=== PATIENT | female | born 1995 | race Caucasian/White ===

== ENCOUNTER 2017-06-08 07:39 | Emergency (ER) | payer MEDICAID, SELFPAY ==
[2017-06-08 07:40] VITALS: BP 103/75; PULSE 90; RESP 18; TEMP 36.4; O2SAT 97; BMI 28.5
[2017-06-08 07:55] VITALS: BP 103/70; PULSE 87; RESP 19; O2SAT 98
--- NOTE | 2017-06-08 08:01 | RAD_ITS ---
STUDY: X-RAY CHEST REASON FOR EXAM: Female, 21 years old. Chest pain TECHNIQUE: PA and lateral views of the chest. COMPARISON: None. FINDINGS: EKG leads overlie the chest The lungs are clear and expanded. There is no demonstrated pleural abnormality. Normal size heart. Normal mediastinum and eboni. Normal visualized pulmonary arteries. Normal visualized aortic arch and descending thoracic aorta. Normal visualized thoracic spine. Normal visualized ribs, clavicles, and shoulders. There is no demonstrated abnormality of the visualized soft tissue structures of the upper abdomen. RAD/Chest PA and Lateral IMPRESSION: Normal x-ray examination of the chest. Electronically Signed: Tremaine Cedeno MD at 8:37 EST , Service support ,
--- NOTE | 2017-06-08 08:14 | ED.VISSUMM ---
- ER Visit Summary Date of Service: 06/08/17 Chief Complaint: Sent to emergency room by work History of Present Illness: The patient is a 21 F who states that she is here for a chest pain. She states that today she went to work was told to go see a doctor in the emergency room. 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 She states that she has had a cough for several days. She notes nausea vomiting diarrhea. She notes a headache. She notes now she has a dull ache in the center of her chest that become sharp when she pushes on it. She has a history of anxiety depression. She takes no medications. She is a smoker. No reported fevers. She states I am here for that work note thing. Physical Examination: Afebrile vital signs are stable Gen: Well-nourished well-developed Head: Normocephalic atraumatic Eyes: Perrl EOMI ENT: TMs clear rhinorrhea clear moist mucous membranes Neck: Supple no lymphadenopathy no JVD nontender CVS: Regular rate rhythm no murmurs normal S1-S2 Respiratory: No distress clear to auscultation bilaterally chest tender palpation in the midline along the costochondral junction. Abdomen: Soft nontender nondistended normal bowel sounds no masses Back: Nontender Extremity: Nontender no edema Skin: Normal color no rash Neuro: alert orientated ?3 CN II-XII intact normal strength sensation reflexes gait cerebellar Psych: Normal affect normal mood Test Results: Chest x-ray was obtained. Emergency Department Course and Treatment: [] Impression: [] This note was generated with [employer] dictation software. It may contain incorrect words, spelling, and punctuation that were not noted in review of the chart prior to signing ED Disposition - Plan for ED Patient: Disposition: Home or Assisted Living Chief Complaint: General Illness Instructions: ED Upper Resp Infec No Abx Tx Prescriptions: Albuterol Inhaler [Ventolin Hfa] 2 puff INHALATION Q4H PRN PRN #1 inhaler PRN Reason: Wheezing Benzonatate [Tessalon Perle] 200 mg PO TID PRN PRN #20 capsule PRN Reason: Cough Referrals: Rajiv Kohler [Primary Care Provider] - 1 Week if not improving
[2017-06-08 09:04] VITALS: BP 104/69; PULSE 89; RESP 16; O2SAT 99
== END 2017-06-08 09:05 | disposition home or self-care (01) ==
PROVIDERS: Emergency Provider Emergency Medicine; Family Provider Family Medicine; PCP Family Medicine
DX: J06.9 Acute upper respiratory infection, unspecified (principal); R05 Cough; R19.7 Diarrhea, unspecified; R11.2 Nausea with vomiting, unspecified; R07.89 Other chest pain; F41.9 Anxiety disorder, unspecified; F32.9 Major depressive disorder, single episode, unspecified; Z72.0 Tobacco use
CPT/HCPCS: 71020; 99283

== ENCOUNTER 2018-01-03 00:11 | Emergency (ER) | payer SELFPAY ==
[2018-01-03 00:13] VITALS: BP 112/70; PULSE 100; RESP 16; TEMP 36.7; O2SAT 98; BMI 25.7
--- NOTE | 2018-01-03 01:00 | CT_ITS ---
STUDY: CT ABDOMEN AND PELVIS WITHOUT CONTRAST REASON FOR EXAM: Female, 22 years old. Bilateral flank pain, history of Crohn's disease RADIATION DOSAGE (If Supplied By Facility): CTDIvol = ( 7.45 ) mGy, DLP = ( 400.44 ) mGycm TECHNIQUE: Transaxial images were obtained from the dome of the diaphragm to the symphysis pubis without oral contrast, and without intravenous contrast. Sagittal and coronal images were reconstructed. Individualized dose optimization techniques were used for this CT. COMPARISON: 02/24/2017 FINDINGS: The visualized lung bases are unremarkable. The visualized portions of the heart are within normal limits. Normal liver. Normal gallbladder and extrahepatic biliary system. Normal spleen. Normal pancreas. Normal bilateral adrenal glands. Normal right kidney. Normal left kidney. Normal visualized stomach. Normal small intestine. Normal colon. The appendix is visualized and appears normal. Normal abdominal aorta. Normal inferior vena cava. Normal retroperitoneum. Normal urinary bladder. Normal abdominal wall. Normal osseous structures. CT/Abdomen/Pelvis without Cont IMPRESSION: No evidence of acute intestinal pathology or acute obstructive uropathy. Electronically Signed: Cole Alexandre MD at 2:51 EDT Tel , Service support ,
[2018-01-03] MEDS: 0.9% Normal Saline 1,000 ML 1000 ML IV (01:06)
[2018-01-03] MEDS: proMETHazine 25 MG/ML Syringe 12.5 MG IV (01:06)
[2018-01-03 01:17] LABS: Absolute Lymphocyte Count 2.58 X10^3/ul (0.83-4.51); Absolute Neutrophil Count 4.4 X10^3/uL (2.0-7.7); Basophil# 0.01 X10^3/uL; Basophil% 0.1 % (0-1); Hemoglobin 12.5 g/dl (12.0-15.0); Lymphocyte # 2.58 X10^3/ul (4.0); Lymphocyte % 33.6 % (19-41); Mean Corp Hgb Conc 33.8 g/gl (32-36); Mean Corpuscular Hgb 29.1 pg (27.0-32.0); Mean Corpuscular Volume 86.2 fL (81-99); Mean Platelet Vol. 10.9 fl (6.2-12.0); Monocyte# 0.64 X10^3/uL; Monocyte% 8.3 % (0-10); Neutrophil # 4.44 X10^3/uL (2.7-7.7); Neutrophil % 57.9 % (47-70); POSITIVE COUNT NO; POSITIVE DIFFERENTIAL NO; POSITIVE MORPHOLOGY NO; Platelet Count 277 K/mm3 (150-450); RBC Distribution Width CV 13.3 % (11.6-14.6); RBC Distribution Width SD 40.9 fl (35.1-43.9); Red Blood Count 4.29 M/mm3 (4.2-5.4); White Blood Count 7.7 K/mm3 (4.4-11.0)
[2018-01-03 01:31] LABS: AST(SGOT) 17 U/L (15-37); Alanine Aminotransfer ALT/SGPT 24 U/L (13-56); Albumin, Serum 3.6 g/dL (3.2-5.0); Alkaline Phosphatase 72 U/L (45-117); Anion Gap 5 (5-15); BUN 14 mg/dL (7-18); BUN/Creat Ratio 20.2 RATIO (10-20); Bilirubin, Direct 0.08 mg/dL (0.00-0.30); Calcium,Total 8.4 mg/dL (8.5-10.1); Chloride 106 mmol/L (98-107); Creatinine, Serum 0.69 mg/dL (0.55-1.02); EST Glomerular Filtration Rate 112 mL/min (>60); Est Glom Filt Rate - Afr Amer 136 mL/min (>60); Estimated Creatinine Clearance 110.43 ml/min; Globulin 3.6 g/dL (2.2-4.2); Glucose 98 mg/dL (74-106); Potassium 3.8 mmol/L (3.5-5.1); Protein, Total 7.2 g/dL (6.4-8.2); Sodium Level 139 mmol/L (136-145)
[2018-01-03 01:37] LABS: Pregnancy, Serum, hCG Quali. NEGATIVE Negative (0-9 Nonpreg)
[2018-01-03 02:19] LABS: Mucous, Urine 0 SEEN /hpf (<or=2+); Red Blood Cells-Urine 0 SEEN /hpf (0-5)
[2018-01-03 02:26] LABS: Color, Urine Straw (Yellow); Glucose, Dipstick Normal (Normal); Ketone-Dipstick Negative (Negative); Leukocyte Esterase-Dipstick 25 /ul (Negative); Nitrite-Dipstick Negative (Negative); Occult Blood-Urine Negative /ul (Negative); Protein-Dipstick Negative (Negative); Urine Bilirubin Dipstick Negative (Negative); Urine Clarity Sl. Cloudy (Clear); Urine Urobilinogen Normal (Normal); Urine pH 6.5 (5.0 - 8.0)
[2018-01-03 02:34] LABS: Bacteria RARE /hpf (None Seen); Squamous Epithelial Cells - UA 0-5 SEEN /hpf (5-10); White Blood Cells 0-5 SEEN /hpf (0-5)
--- NOTE | 2018-01-03 03:16 | ED.DCSUM_ITS ---
- ER Visit Summary Date of Service: 01/03/18 Chief Complaint: [Abdominal pain] History of Present Illness: The patient is a 22 F [who presents the emergency department with several hours of abdominal pain. It started today. It is on the right side. She has had similar pain in the past and she has always been told is from a ruptured cyst but then she follows up with her doctor and he says no. She does have a history of Crohn's disease. She is vomited 4 times. One time, the third time he had blood in it. She states she is 2 weeks late on her period but has taken several home tests that were negative. She is otherwise healthy.] Physical Examination: [] WN WD NAD PERRL EOMI MMM NECK supple and nontender, no masses RRR no murmur rub or gallop, no peripheral edema, symmetric radial pulses CTAB no respiratory distress ABDOMEN is soft mild tenderness in the right side and right upper quadrant, normal bowel sounds, no distension, no rebound or guarding SKIN is warm and dry no rashes Alert and Oriented x3, CN II-XII in tact, no motor or sensory deficits, gait normal No lymphadenopathy Test Results: [] Emergency Department Course and Treatment: [Screening labs were obtained and were unremarkable. test was negative. Urine does not show any evidence of infection. CT of the abdomen and pelvis shows no acute process. Patient was given Protonix and Zofran and she was feeling much better. She will be discharged home with Zofran and Prilosec she was given precautions for which to return and will follow up with her primary care physician] Treatment Plan: [] Disposition: [Discharge] Impression: [Right upper quadrant abdominal pain] This note was generated with [employer] dictation software. It may contain incorrect words, spelling, and punctuation that were not noted in review of the chart prior to signing ED Disposition - Plan for ED Patient: Chief Complaint: Nausea/Vomiting Referrals: Rajiv Kohler [Primary Care Provider] -
--- NOTE | 2018-01-03 03:16 | ED.DEP ---
ED Disposition - Plan for ED Patient: Chief Complaint: Nausea/Vomiting Instructions: ED Abdominal Pain Unkn Cause, ED Nausea Vomiting Prescriptions: Ondansetron [Zofran Odt] 4 mg PO Q8H PRN PRN #10 tablet PRN Reason: Vomiting Omeprazole [Prilosec] 20 mg PO DAILY #14 capsule Referrals: Rajiv Kohler [Primary Care Provider] - 3-5 Days
[2018-01-03 03:26] VITALS: BP 97/54; PULSE 82; RESP 14; O2SAT 100
== END 2018-01-03 03:27 | disposition home or self-care (01) ==
PROVIDERS: Emergency Provider Emergency Medicine; Family Provider Family Medicine; PCP Family Medicine
DX: R10.11 Right upper quadrant pain (principal); R11.2 Nausea with vomiting, unspecified; K50.90 Crohn's disease, unspecified, without complications; Z72.0 Tobacco use
CPT/HCPCS: 74176; 80053; 81001; 82248; 84703; 85025; 96361; 96365; 96375; 99283; J7030; A4216

== ENCOUNTER 2018-04-15 13:19 | Emergency (ER) | payer SELFPAY ==
[2018-04-15 13:20] VITALS: BP 128/75; PULSE 93; RESP 17; TEMP 37.1; O2SAT 97; BMI 29.6
[2018-04-15 13:56] LABS: Absolute Lymphocyte Count 2.64 X10^3/ul (0.83-4.51); Absolute Neutrophil Count 7.1 X10^3/uL (2.0-7.7); Basophil# 0.01 X10^3/uL; Basophil% 0.1 % (0-1); Hematocrit 36.6 % (37-47); Hemoglobin 12.2 g/dl (12.0-15.0); Lymphocyte # 2.64 X10^3/ul (4.0); Lymphocyte % 25.1 % (19-41); Mean Corp Hgb Conc 33.3 g/gl (32-36); Mean Corpuscular Volume 86.9 fL (81-99); Monocyte# 0.71 X10^3/uL; Monocyte% 6.7 % (0-10); Neutrophil # 7.13 X10^3/uL (2.7-7.7); Neutrophil % 67.8 % (47-70); Platelet Count 319 K/mm3 (150-450); RBC Distribution Width CV 13.3 % (11.6-14.6); RBC Distribution Width SD 41.1 fl (35.1-43.9); Red Blood Count 4.21 M/mm3 (4.2-5.4); White Blood Count 10.5 K/mm3 (4.4-11.0)
--- NOTE | 2018-04-15 13:57 | CT_ITS ---
STUDY: CT ABDOMEN AND PELVIS WITHOUT CONTRAST REASON FOR EXAM: Female, 22 years old. Lower abdominal pain RADIATION DOSAGE (If Supplied By Facility): CTDIvol = ( 8.74 ) mGy, DLP = ( 449.83 ) mGycm TECHNIQUE: Transaxial images were obtained from the dome of the diaphragm to the symphysis pubis without oral contrast, and without intravenous contrast. Sagittal and coronal images were reconstructed. Individualized dose optimization techniques were used for this CT. COMPARISON: 01/03/2018 FINDINGS: Evaluation of the abdominal viscera is limited in the absence of intravenous contrast. The visualized lung bases are clear. The visualized portions of the heart and pericardium are within normal limits. There are no calcified gallstones present. The liver demonstrates an unremarkable unenhanced appearance. The spleen is normal in size. The pancreas demonstrates an unremarkable unenhanced appearance. The adrenal glands are within normal limits. There are no renal or ureteral stones. There is no hydronephrosis. Normal visualized stomach. There is no bowel obstruction or inflammation. The appendix is visualized and appears normal. The aorta is normal in caliber. There is no abdominal or pelvic free air, free fluid, fluid collection or lymphadenopathy. There are no destructive osseous lesions. CT/Abdomen/Pelvis without Cont IMPRESSION: No acute abdominal or pelvic pathology demonstrated on this noncontrast CT. Electronically Signed: Abraham Li, at 15:13 EDT Tel , Service support ,
[2018-04-15 13:58] LABS: POSITIVE COUNT NO; POSITIVE DIFFERENTIAL NO; POSITIVE MORPHOLOGY NO
--- NOTE | 2018-04-15 14:12 | ED.DCSUM_ITS ---
- ER Visit Summary Date of Service: 04/15/18 Chief Complaint: [] Right flank pain for 2 days History of Present Illness: The patient is a 22 F [] patient's had intermittent right flank pain for 2 days pain begins in her right upper back and radiates to her right lower abdomen nothing makes it better or worse she had an episode yesterday resolved then a few hours ago reoccurred, she has no history of any GI ailments, no history of kidney stone denies being no fever no cough normal bowel bladder habits otherwise is on no chronic meds by history Physical Examination: [] General, no distress resting comfortably, her vital signs are within normal range HEENT is generally unremarkable The neck is supple no adenopathy Cardiovascular, regular rate and rhythm Lungs, clear bilateral Abdomen, soft nontender there is a vague pain to the right lower abdomen also to the right flank she indicates that the pain from her right upper back into her right lower abdomen but on exam there is really minimal to no findings there is no rebound or guarding the skin is normal no lesions Extremities, no clubbing cyanosis or edema Neurologic, awake alert answering questions appropriately moving all 4 extremities Test Results: [] Emergency Department Course and Treatment: [] IV fluids pain management CT flank studies and CT scan flank are all generally unremarkable including UA see those reports her symptoms are resolved she feels better explained her the exact etiology is unclear at this time she will be discharged home follow-up her family doctor return for change in symptoms Treatment Plan: [] Disposition: [] Home stable Impression: [] Right flank pain resolved etiology unclear This note was generated with [employer] dictation software. It may contain incorrect words, spelling, and punctuation that were not noted in review of the chart prior to signing ED Disposition - Plan for ED Patient: Chief Complaint: Abd Pain Referrals: Rajiv Kohler [Primary Care Provider] -
[2018-04-15 14:20] LABS: Anion Gap 7 (5-15); BUN 15 mg/dL (7-18); BUN/Creat Ratio 22.3 RATIO (10-20); Calcium,Total 8.1 mg/dL (8.5-10.1); Chloride 104 mmol/L (98-107); Creatinine, Serum 0.67 mg/dL (0.55-1.02); EST Glomerular Filtration Rate 116 mL/min (>60); Est Glom Filt Rate - Afr Amer 140 mL/min (>60); Estimated Creatinine Clearance 113.73 ml/min; Glucose 80 mg/dL (74-106); Potassium 3.9 mmol/L (3.5-5.1); Sodium Level 137 mmol/L (136-145)
[2018-04-15] MEDS: Ondansetron 4 MG/2 ML Vial IV (14:27)
[2018-04-15] MEDS: HYDROmorphone 0.5 MG/0.5 ML SYRINGE IV (14:27)
[2018-04-15] MEDS: 0.9% Normal Saline 1,000 ML 250 ML IV (14:27)
[2018-04-15 14:38] LABS: Pregnancy, Serum, hCG Quali. NEGATIVE Negative (0-9 Nonpreg)
[2018-04-15 15:17] LABS: Bacteria 0 SEEN /hpf (None Seen); Mucous, Urine 0 SEEN /hpf (<or=2+); Red Blood Cells-Urine 0 SEEN /hpf (0-5); White Blood Cells 0 SEEN /hpf (0-5)
[2018-04-15 15:19] VITALS: PULSE 88; RESP 16
[2018-04-15 15:29] LABS: Color, Urine Yellow (Yellow); Glucose, Dipstick Normal (Normal); Ketone-Dipstick Negative (Negative); Leukocyte Esterase-Dipstick Negative /ul (Negative); Nitrite-Dipstick Negative (Negative); Occult Blood-Urine 25 /ul (Negative); Protein-Dipstick Negative (Negative); Specific Gravity, Urine 1.015 (1.002-1.030); Urine Bilirubin Dipstick Negative (Negative); Urine Clarity Clear (Clear); Urine Urobilinogen Normal (Normal)
[2018-04-15 15:50] LABS: Squamous Epithelial Cells - UA 0-5 SEEN /hpf (5-10)
--- NOTE | 2018-04-15 15:54 | ED.DEP ---
ED Disposition - Plan for ED Patient: Chief Complaint: Abd Pain Instructions: ED Flank Pain Uncertain Cause Referrals: Rajiv Kohler [Primary Care Provider] -
[2018-04-15 16:31] VITALS: BP 108/60; PULSE 59; RESP 16
== END 2018-04-15 16:32 | disposition home or self-care (01) ==
PROVIDERS: Emergency Provider Emergency Medicine; Family Provider Family Medicine; PCP Family Medicine
DX: R10.31 Right lower quadrant pain (principal); R10.9 Unspecified abdominal pain; R11.0 Nausea
CPT/HCPCS: 74176; 80048; 81001; 84703; 85025; 96361; 96374; 96375; 99283; J7030; A4216; J2405

== ENCOUNTER 2018-06-04 15:34 | Emergency (ER) | payer OTHER, SELFPAY ==
[2018-06-04 15:35] VITALS: BP 128/72; PULSE 118; RESP 16; TEMP 36.4; O2SAT 98; BMI 25.7
--- NOTE | 2018-06-04 15:43 | ED.VISSUMM ---
- ER Visit Summary Date of Service: 06/04/18 Chief Complaint: Right wrist laceration History of Present Illness: The patient is a 22 F presents to the emergency department laceration to her right wrist. Patient states that she has a glass window from her living room side. She states her cat was on the porch and she was tapping on the window to get the cats attention. She states the window shattered and she incised her wrist. She states that she picked some glass out. Her last tetanus was less than 5 years ago. She is not on anticoagulants. She does describe some pain at the area of the laceration. She denies any numbness or tingling in her hand. She denies any other injury. Physical Examination: Exam is relatively unremarkable. Patient is up to 1 cm and her lacerations are superficial overlying the carpal tunnel. There is no evidence of tendinous injury. Her pulses are normal. Cap refill is normal. I do not appreciate any gross contamination of glass on visual inspection. There is no other injury. Test Results: [] Emergency Department Course and Treatment: The patient does have a superficial laceration. I did obtain some plain films. There is no evidence of fracture. There is questionable radiopaque foreign bodies. The wound was anesthetized with lidocaine with epinephrine. I did irrigated with 250 cc and explored the wound. I do not see any retained glass. I inspected the wound again and that did not find any glass. It was irrigated again and closed. The patient tolerated this without issue. She is placed in a bacitracin dressing. Again, I do not see any retained glass after irrigation and exploration. The patient was placed on Keflex given concern for contamination. She was counseled on wound care. I do want her to be reevaluated if she has any increasing pain redness or drainage. She is comfortable with this plan of care. She will be discharged home. Treatment Plan: [] Disposition: Discharge Impression: 1. 2 cm right wrist laceration This note was generated with [employer] dictation software. It may contain incorrect words, spelling, and punctuation that were not noted in review of the chart prior to signing ED Disposition - Plan for ED Patient: Chief Complaint: Laceration Instructions: ED Laceration All Prescriptions: Cephalexin [Keflex] 500 mg PO Q8 #21 cap Referrals: Rajiv Kohler [Primary Care Provider] - 7 Days for suture removal
[2018-06-04] MEDS: Acetaminophen 500 MG Tablet 1000 MG PO (15:47)
--- NOTE | 2018-06-04 15:55 | RAD_ITS ---
STUDY: X-RAY - RIGHT WRIST REASON FOR EXAM: Female, 22 years old. Laceration TECHNIQUE: 3 view(s) of the wrist were obtained. COMPARISON: None. FINDINGS: Normal visualized distal radius and ulna. Normal radiocarpal articulation. Normal distal radioulnar articulation. Normal carpal bones. Normal carpal articulations. Normal carpometacarpal articulation of the thumb. Normal second through fifth carpometacarpal articulations. Normal visualized metacarpal bones. There are several tiny radiopaque foreign bodies of the soft tissues of the mid anterior wrist noted on the lateral view only which may represent glass fragments. RAD/Wrist min 3 Views IMPRESSION: The osseous structures appear normal. There are several tiny radiopaque foreign bodies of the soft tissues of the mid anterior wrist noted on the lateral view which may represent glass fragments. Electronically Signed: Virgilio Gonzalez MD at 16:22 EST , Service support ,
--- NOTE | 2018-06-04 16:39 | ED.RN ---
DISCHARGE INSTRUCTIONS GIVEN TO AND REVIEWED WITH PATIENT, PATIENT DENIES QUESTIONS OR CONCERNS AND VOICES UNDERSTANDING OF DISCHARGE INSTRUCTIONS. PT AMBULATES OUT OF ROOM WITHOUT DIFFICULTY.
== END 2018-06-04 16:40 | disposition home or self-care (01) ==
LOC: ED 15:52
PROVIDERS: Emergency Provider Emergency Medicine; Family Provider Family Medicine; PCP Family Medicine
DX: S61.511A Laceration without foreign body of right wrist, initial encounter (principal); W25.XXXA Contact with sharp glass, initial encounter; Y93.9 Activity, unspecified; Y92.9 Unspecified place or not applicable
CPT/HCPCS: 12001; 73110; 99284

== ENCOUNTER 2019-10-02 22:18 | Emergency (ER) | payer MEDICAID, SELFPAY ==
[2019-10-02 22:19] VITALS: BP 126/84; PULSE 132; RESP 17; TEMP 37.6; O2SAT 96; BMI 21.2
--- NOTE | 2019-10-02 22:36 | EKG12_ITS ---
Test Reason : COUGH Blood Pressure : / mmHG Vent. Rate : 118 BPM Atrial Rate : 118 BPM P-R Int : 120 ms QRS Dur : 082 ms QT Int : 316 ms P-R-T Axes : 060 059 046 degrees QTc Int : 442 ms Sinus tachycardia Otherwise normal ECG Confirmed by FERCHO CHASE, MALI ([id number]), manager editorial ALLAN HAMMOND ([id number]) on 10/04/2019 1:34:15 PM Referred By: ZACK Confirmed By:MALI BRANTLEY MD
[2019-10-02 22:53] VITALS: O2SAT 97
[2019-10-02] MEDS: 0.9% Normal Saline 1,000 ML 150 ML IV (23:00)
[2019-10-02] MEDS: MethylPREDNISolone 125 MG/2 ML Vial 60 MG IV (23:01)
[2019-10-02 23:17] LABS: Absolute Lymphocyte Count 1.82 X10^3/uL (0.83-4.51); Absolute Neutrophil Count 4.3 X10^3/uL (2.0-7.7); Basophil# 0.01 X10^3/uL; Basophil% 0.1 % (0-1); Hematocrit 37.1 % (37-47); Hemoglobin 12.4 g/dL (12.0-15.0); Lymphocyte # 1.82 X10^3/ul (4.0); Lymphocyte % 27.3 % (19-41); Mean Corp Hgb Conc 33.4 g/dL (32-36); Mean Corpuscular Hgb 29.4 pg (27.0-32.0); Mean Corpuscular Volume 87.9 fL (81-99); Mean Platelet Vol. 10.6 fl (6.2-12.0); Monocyte# 0.43 X10^3/uL; Monocyte% 6.4 % (0-10); NRBC Flagged by Analyzer 0 % (0-5); Neutrophil # 4.33 X10^3/uL (2.7-7.7); POSITIVE MORPHOLOGY YES; Platelet Count 184 K/mm3 (150-450); RBC Distribution Width CV 12.4 % (11.6-14.6); RBC Distribution Width SD 39.8 fl (35.1-43.9); Red Blood Count 4.22 M/mm3 (4.2-5.4); White Blood Count 6.7 K/mm3 (4.4-11.0)
[2019-10-02 23:18] LABS: Differential Indicated SCAN CRITERIA MET
--- NOTE | 2019-10-02 23:27 | RAD_ITS ---
STUDY: X-RAY CHEST REASON FOR EXAM: Female, 23 years old. COUGH THAT HAS GOTTEN WORSE TODAY -- HX ASTHMA TECHNIQUE: PA and lateral chest. COMPARISON: 06/08/2017. FINDINGS: The lungs are clear and expanded. There is no demonstrated pleural abnormality. Normal size heart. Normal mediastinum and eboni. Normal visualized pulmonary arteries. Normal visualized aortic arch and descending thoracic aorta. Normal visualized thoracic spine. Normal visualized ribs, clavicles, and shoulders. There is no demonstrated abnormality of the visualized soft tissue structures of the upper abdomen. RAD/Chest PA and Lateral IMPRESSION: Normal x-ray examination of the chest. Electronically Signed: Bryanna Starks MD at 23:46 EDT Tel , Service support ,
[2019-10-02 23:29] LABS: Anion Gap 8 (5-15); BUN 7 mg/dL (7-18); BUN/Creat Ratio 10.8 RATIO (10-20); Calcium,Total 8.3 mg/dL (8.5-10.1); Chloride 105 mmol/L (98-107); Creatinine, Serum 0.65 mg/dL (0.55-1.02); EST Glomerular Filtration Rate 120 mL/min (>60); Est Glom Filt Rate - Afr Amer 145 mL/min (>60); Estimated Creatinine Clearance 116.24 ml/min; Glucose 86 mg/dL (74-106); Potassium 3.1 mmol/L (3.5-5.1); Sodium Level 141 mmol/L (136-145)
[2019-10-02 23:34] LABS: Lactic Acid 0.8 mmol/L (0.4-1.9)
[2019-10-02 23:44] LABS: Differential Comment SCANNED; Reactive Lymphocyte RARE
--- NOTE | 2019-10-02 23:45 | ED.DCSUM_ITS ---
- ER Visit Summary Date of Service: 10/02/19 Chief Complaint: [Cough and shortness of breath] History of Present Illness: The patient is a 23 F [presents to the emergency department with symptoms that started about a week ago. Patient thought it was her asthma that was acting up. Patient describes coughing up white and yellow phlegm at times. She does complain of a sore throat. She is had no known fever at home. She denies any body aches. She denies recent travel. She denies any exposures to individuals with novel coronavirus. Denies recent travel or surgery. She denies any chest pain. Patient's been using her inhaler but only getting temporary relief.] Physical Examination: [HEENT-PERRLA, EOMI. Cranial nerves II through XII grossly intact. TMs clear. Mucous membranes moist. No adenopathy. Cardiovascular-regular rate and rhythm without murmur or ectopy Lungs-good aeration bilaterally. No conversational dyspnea. Patient does have some faint expiratory wheezes noted. She is got some coarse breath sounds and rhonchi bilaterally. No significant tachypnea. No accessory muscle use or retractions. Abdomen-normoactive bowel sounds, soft, nontender, no rebound or rigidity, no peritoneal signs. Extremities-intact ?4, normal range of motion, normal pulses, atraumatic] Test Results: [EKG obtained arrival shows sinus tachycardia with a ventricular rate of 118 bpm with no acute ST segment changes. CBC with differential was normal. Chemistries unremarkable. RSV screen was negative. Influenza screen was negative. Chest x-ray read by radiology as normal] Emergency Department Course and Treatment: [Patient was given albuterol MDI on arrival. 4 puffs. Patient was given Solu-Medrol IV.] Treatment Plan: [Patient will be given a prescription for doxycycline as well as prednisone. She understands I cannot rule out novel coronavirus as the etiology of her symptoms being that I am unable to test her for this in the emergency department. She advised to return if increasing shortness of breath or condition should worsen anyway. Patient advised to quarantine self for the next 2 weeks.] Disposition: [Discharged home in stable condition] Impression: [Asthmatic bronchitis-possible novel coronavirus infection] This note was generated with [employer] software. It may contain incorrect words, spelling, and punctuation that were not noted in review of the chart prior to signing ED Disposition - Plan for ED Patient: Referrals: Rajiv Kohler [Primary Care Provider] -
[2019-10-02 23:47] VITALS: BP 119/68; PULSE 122; RESP 24; TEMP 36.8; O2SAT 100
--- NOTE | 2019-10-02 23:49 | DCINST.ED_ITS ---
ED Disposition - Plan for ED Patient: Instructions: BRONCHITIS with Wheezing (Adult) Prescriptions: Prednisone [Deltasone] 20 mg PO BID #10 tab Transmission Status: Pending to [facility] Doxycycline 100 mg PO BID #20 cap Transmission Status: Pending to [facility] Referrals: Rajiv Kohler [Primary Care Provider] - 10-14 Days if not better
== END 2019-10-03 00:01 | disposition home or self-care (01) ==
LOC: ED 22:48
PROVIDERS: Emergency Provider Emergency Medicine; PCP Family Medicine
DX: J45.909 Unspecified asthma, uncomplicated (principal); R00.0 Tachycardia, unspecified; Z72.0 Tobacco use
CPT/HCPCS: 71046; 80048; 83605; 85025; 87040; 87804; 87807; 93005; 96361; 96374; 99285; J7030; A4216

== ENCOUNTER 2019-12-22 14:22 | Emergency (ER) | payer MEDICAID, SELFPAY ==
[2019-12-22 14:24] VITALS: BP 120/93; PULSE 102; RESP 18; TEMP 37.2; O2SAT 99; BMI 27.4
--- NOTE | 2019-12-22 14:37 | US_ITS ---
STUDY: FIRST TRIMESTER OBSTETRICAL ULTRASOUND REASON FOR EXAM: Female, 24 years old. Spotting. . LMP: 11/04/2019 TECHNIQUE: Transvaginal PRIOR ULTRASOUND: None. FINDINGS: There is visualization of a single gestational sac in a normal intrauterine position. There is a visualized yolk sac. There is visualization of a live embryo. The crown-rump length (CRL) measures 6.6 mm, indicating an estimated gestational age (EGA) of 6 weeks, 4 days. The estimated delivery date is 08/10/2020 There is demonstrated cardiac activity with a heart rate of 117 bpm. The uterus measures 10.0 x 6.3 x 4.9 cm. There is no demonstrated uterine fibroid. The cervix is closed. The right ovary measures 3.5 x 3.4 x 2.1 cm. There is no right ovarian cyst. There is no visualized right adnexal mass or complex lesion. The left ovary measures 5.2 x 3.3 x 2.9 cm. There is a 2.4 x 1.9 cm cyst in the left ovary which likely represents a corpus luteum. There is no visualized left adnexal mass or complex lesion. There is minimal fluid in the cul de sac. US/Transvaginal w/Preg US IMPRESSION: Single live intrauterine gestation, as described above. Electronically Signed: Abraham Li, at 15:58 EDT Tel , Service support ,
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
[2019-12-22] MEDS: 0.9% Normal Saline 1,000 ML 1000 ML IV (15:03)
[2019-12-22] MEDS: HYDROcodone Bitartrate/Apap 5/325 Tablet PO (15:03)
[2019-12-22] MEDS: Ondansetron ODT 4 MG Tablet 8 MG PO (15:04)
[2019-12-22 15:25] LABS: Absolute Lymphocyte Count 1.89 X10^3/uL (0.83-4.51); Absolute Neutrophil Count 6.4 X10^3/uL (2.0-7.7); Basophil# 0.02 X10^3/uL; Basophil% 0.2 % (0-1); Hematocrit 38.8 % (37-47); Hemoglobin 12.8 g/dL (12.0-15.0); Lymphocyte # 1.89 X10^3/ul (4.0); Lymphocyte % 21.1 % (19-41); Mean Corpuscular Hgb 30.4 pg (27.0-32.0); Mean Corpuscular Volume 92.2 fL (81-99); Mean Platelet Vol. 10.6 fl (6.2-12.0); Monocyte# 0.62 X10^3/uL; Monocyte% 6.9 % (0-10); NRBC Flagged by Analyzer 0 % (0-5); Neutrophil # 6.39 X10^3/uL (2.7-7.7); Neutrophil % 71.5 % (47-70); Platelet Count 314 K/mm3 (150-450); RBC Distribution Width CV 13.3 % (11.6-14.6); RBC Distribution Width SD 45.4 fl (35.1-43.9); Red Blood Count 4.21 M/mm3 (4.2-5.4)
[2019-12-22 16:43] VITALS: RESP 18
[2019-12-22 16:47] VITALS: BP 98/65; PULSE 90; RESP 14; O2SAT 100
== END 2019-12-22 16:49 | disposition home or self-care (01) ==
LOC: ED 15:00
PROVIDERS: Emergency Provider Emergency Medicine; PCP Family Medicine
DX: O20.9 Hemorrhage in early pregnancy, unspecified (principal); O20.0 Threatened abortion; O99.331 Smoking (tobacco) complicating pregnancy, first trimester; F17.200 Nicotine dependence, unspecified, uncomplicated; Z3A.01 Less than 8 weeks gestation of pregnancy
CPT/HCPCS: 76817; 85025; 86900; 86901; 96360; 96361; 99285; J7030; A4216

== ENCOUNTER 2020-08-12 15:54 | Inpatient (IN) | payer MEDICAID, SELFPAY ==
[2020-08-12] VITALS (20 sets, daily range): BP systolic 88–128; BP diastolic 51–76; PULSE 82–129; TEMP 36.9–37.1; O2SAT 93–98; BMI 28.8
[2020-08-12] MEDS: Lactated Ringers 1,000 ML 50 ML IV (16:30)
[2020-08-12 16:42] LABS: Absolute Lymphocyte Count 1.76 X10^3/uL (0.83-4.51); Absolute Neutrophil Count 8.1 X10^3/uL (2.0-7.7); Basophil# 0.02 X10^3/uL; Basophil% 0.2 % (0-1); Hematocrit 36.1 % (37-47); Hemoglobin 12.1 g/dL (12.0-15.0); Lymphocyte # 1.76 X10^3/ul (4.0); Lymphocyte % 16.5 % (19-41); Mean Corp Hgb Conc 33.5 g/dL (32-36); Mean Corpuscular Hgb 29.8 pg (27.0-32.0); Mean Corpuscular Volume 88.9 fL (81-99); Mean Platelet Vol. 10.4 fl (6.2-12.0); Monocyte# 0.69 X10^3/uL; Monocyte% 6.5 % (0-10); NRBC Flagged by Analyzer 0 % (0-5); Neutrophil # 8.14 X10^3/uL (2.7-7.7); Neutrophil % 76.1 % (47-70); Platelet Count 307 K/mm3 (150-450); RBC Distribution Width CV 12.4 % (11.6-14.6); RBC Distribution Width SD 40.5 fl (35.1-43.9); Red Blood Count 4.06 M/mm3 (4.2-5.4); White Blood Count 10.7 K/mm3 (4.4-11.0)
[2020-08-12] MEDS: Lactated Ringers 500 ML 999 ML IV (17:33)
--- NOTE | 2020-08-12 18:05 | PCM.HP.OB ---
History Date of Admission: 08/12/20 Final AMITA: 08/10/20 Gestational age: 40 Weeks and 2 Days History of this : This is a 24 year-old, @ 40.2 weeks- admission for IOL due to tachycardia and variable decelerations on NST in office. Allergies morphine Allergy (Verified 12/22/19 14:27) shaking, feels like body shuts down pt also states it's difficult to breathe Home Medications: Home Medications Albuterol IH (ProAir) [Proair Hfa (SP)Vent Pts] 1 puff INHALATION Q4H PRN PRN 10/02/19 Pnv No.95/Ferrous Fum/Folic AC [ Caplet] 1 ea PO DAILY 12/22/19 Smoking Status: Current every day smoker Alcohol: None Substance Use Type: Sleep Aides Number of Fetus(es): 1 History Past Pregnancies: Past Pregnancies Delivery Date Name GA/ Weeks Outcome Route Wt Infant Sex Labor Length Anesthesia Delivery Location Provider FOB Labs: GBS negative, Gonorrhea/chlamydia negative. Expected Infant Delivery Method: Spontaneous Vaginal Describe any other labor & delivery plans:: Thompson/pitocin for induction Review of Systems Constitutional: Denies: Anorexia Eyes: Denies: Blurred vision HEENT: Denies: Head Aches Gastrointestinal: Denies: Abdominal Pain Physical Exam Vitals: Vital Signs Pulse BP 104 H 125/76 H 08/12/20 16:30 08/12/20 16:30 General: Alert, Oriented x3 Abdomen: Soft, Non Tender, Gravid Neurological: Cranial nerves II-XII grossly intact AWNING FRAME MAKER: Normal external genitalia Estimated gestational size: Appropriate for gestational size Presentation: Cephalic Cervix Dilation (cm): 1.5 Station: -2 Effacement (%): 50 Assessment/Plan All Active Problems Maternal anemia in , antepartum (Acute) This is a 24 year-old, @ 40.2 weeks - IOL for Category 2 FHR tracing in office 1) admit to L&D 2) monitor fhr/toco 3) Thompson/pitocin 4) anticipate
[2020-08-12] MEDS: 0.9% Normal Saline Single 100 ML IV.SOLN. INTRA-UTER (18:19)
[2020-08-12] MEDS: Oxytocin 30 units/NS 500 ml 30 UNITS/500 ML IV.SOLN IV (18:50)
[2020-08-12] MEDS: fentaNYL-bupivacaine (epidural) 100 ML BAG EPIDURAL (21:15)
[2020-08-12] MEDS: Lactated Ringers 1,000 ML 200 ML IV (22:56)
[2020-08-12] MEDS: Ondansetron 4 MG/2 ML Vial IV (23:29)
[2020-08-13] VITALS (51 sets, daily range): BP systolic 76–124; BP diastolic 39–70; PULSE 77–198; RESP 16; TEMP 36.4–37.4; O2SAT 84–100
[2020-08-13] MEDS: Lactated Ringers 500 ML 999 ML IV ×2 (00:32→03:38)
[2020-08-13] MEDS: fentaNYL-bupivacaine (epidural) 100 ML BAG EPIDURAL (01:21)
[2020-08-13] MEDS: Lactated Ringers 1,000 ML 200 ML IV (04:56)
[2020-08-13] MEDS: Ondansetron 4 MG/2 ML Vial IV (05:05)
[2020-08-13] MEDS: Oxytocin 30 units/NS 500 ml 30 UNITS/500 ML IV.SOLN 334 UNITS IV (08:30)
--- NOTE | 2020-08-13 08:43 | PCM.OPRPT ---
Problem List (1) Vaginal delivery Status: Acute (2) First degree perineal laceration Status: Acute (3) Chlamydia infection affecting in third trimester Status: Acute (4) Trichomonal vaginitis during in third trimester Status: Acute Vaginal Delivery Maternal Presentation: Medically Indicated Induction Method of Induction: Thompson Bulb Amniotic Membrane Rupture Type: Artificial Amniotic Fluid Description: Clear Final AMITA: 08/10/20 Gestational age: 40 Weeks and 3 Days Date of Procedure: 08/13/20 Pre-Operative Diagnosis: Induction of labor Surgery/ Procedure Performed: Spontaneous Vaginal Delivery Type of Anesthesia: Epidural Description of Procedure: Patient with epidural and feeling increased pressure. Found to be complete dilation and +2 station. Arrival membranes still intact and pushing efforts initiated. Rupture of membranes for clear fluid. of viable female over first-degree perineal laceration at 0827. Apgars 8, 9. head delivered with cord around the neck, delivered through, body forthcoming. Infant placed on maternal abdomen, mouth and nares suction for secretions, terminal meconium. Cord clamped and cut after delayed cord clamping 2 minutes by father the baby. Pitocin started to have third stage management. Placenta delivered intact with three-vessel cord spontaneously. Perineum inspected and regular revealed first-degree perineal laceration repaired under epidural analgesia with 3.0 Vicryl Rapide. Vaginal sweep completed by me. Fundus firm and hemostasis achieved, EBL 350 ml. Sponge and instrument count completed by me. Planning to breast-feed. Mom and baby stable. Family bonding well. Dr. Blackburn notified of delivery Presentation: Vertex Placental Delivery Description: Spontaneous Placenta Disposition: [facility] Cord Vessel Description: 3 Vessels Nuchal Cord Compression: Without compression Cord Entanglement: Around neck x 1, loose Estimated Blood Loss: 350 ml A gender: Female (1 minute): 8 (5 minute): 9 Episiotomy Description: None Laceration: Perineal Extension/lac, 1st degree Medications given after delivery: IV Pitocin Complications: None
[2020-08-13] MEDS: 0.9% Saline Lock 10 ML Syringe IV (11:01)
--- NOTE | 2020-08-13 15:34 | NURSING ---
1510 pt states she can feed baby independently, knows to call rn if needs assist
[2020-08-13] MEDS: Ibuprofen 600 MG Tablet PO (18:14)
[2020-08-13] MEDS: Acetaminophen 500 MG Tablet 1000 MG PO (19:58)
[2020-08-14] VITALS (7 sets, daily range): BP systolic 101–107; BP diastolic 55–63; PULSE 86–100; RESP 14–16; TEMP 36.3–36.6
[2020-08-14] MEDS: Ibuprofen 600 MG Tablet PO ×2 (00:17→10:01)
[2020-08-14 05:13] LABS: Hematocrit 32.6 % (37-47); Hemoglobin 10.5 g/dL (12.0-15.0); Mean Corp Hgb Conc 32.2 g/dL (32-36); Mean Corpuscular Hgb 29.1 pg (27.0-32.0); Mean Corpuscular Volume 90.3 fL (81-99); Mean Platelet Vol. 10.2 fl (6.2-12.0); Platelet Count 229 K/mm3 (150-450); RBC Distribution Width CV 12.6 % (11.6-14.6); RBC Distribution Width SD 41.8 fl (35.1-43.9); Red Blood Count 3.61 M/mm3 (4.2-5.4); White Blood Count 12.4 K/mm3 (4.4-11.0)
[2020-08-14] MEDS: Acetaminophen 500 MG Tablet 1000 MG PO (06:03)
--- NOTE | 2020-08-14 08:25 | PN.OBGYN_ITS ---
Patient Problems: Active and Suspected Problems (Last Updated 08/12/20 @ 18:[address] Isha Hall MD) Vaginal delivery (Acute) First degree perineal laceration (Acute) Chlamydia infection affecting in third trimester (Acute) Trichomonal vaginitis during in third trimester (Acute) Subjective: Patient seen at bedside. Rocking in rocking chair. going well. Denies any pain. Ambulating and voiding without difficulty. Desires discharge home today. - Physical Exam Vitals/I&O's: Vital Signs Temp Pulse Resp BP Pulse Ox 97.3 F L 86 14 101/56 L 97 08/14/20 07:47 08/14/20 07:47 08/14/20 07:47 08/14/20 07:47 08/13/20 10:45 Oxygen Delivery Method Room Air Weight: 168 lb Body Mass Index (BMI) 28.8 Intake and Output for Last 24 Hours 08/12/20 08/13/20 08/14/20 23:59 23:59 23:59 Intake Total 832.97 / 832.97 3728.17 / 3728.17 Output Total 200 / 200 3000 / 3000 Balance 632.97 / 632.97 728.17 / 728.17 General: Alert, Oriented x3 HEENT: Atraumatic Oral: Moist Mucosa Neck: Supple Lungs: Normal air movement Cardiovascular: Regular rate Abdomen: Soft Neurological: Cranial nerves II-XII grossly intact Psych/Mental Status: Normal Affect Microbiology Past 72 Hours 08/12/20 17:20 Mucosa - Nose SARS-CoV-2 Antigen (Rapid) - Final Laboratory Results 08/14/20 05:05: WBC 12.4 H, RBC 3.61 L, Hgb 10.5 L, Hct 32.6 L, MCV 90.3, MCH 29.1, MCHC 32.2, RDW Std Deviation 41.8, RDW Coeff of Jennifer 12.6, Plt Count 229, MPV 10.2 Current Medications Acetaminophen (Acetaminophen 500 Mg Tablet) 1,000 mg PO Q8H PRN PRN PRN Reason: Pain Score 1-10 Last Admin: 08/14/20 06:03 Dose: 1,000 mg Documented by: Bisacodyl (Bisacodyl 10 Mg Suppository) 10 mg RECTAL UD PRN PRN Reason: If no BM Dibucaine (Dibucaine 30 Gm Tube) 1 applic TOPICAL TID PRN PRN; Protocol PRN Reason: Discomfort Hydrocortisone (Hydrocortisone 2.5% Crm) 1 applic TOPICAL TID PRN PRN; Protocol PRN Reason: Discomfort Ibuprofen (Ibuprofen 600 Mg Tablet) 600 mg PO Q6H PRN PRN PRN Reason: Pain Score 1-10 Last Admin: 08/14/20 00:17 Dose: 600 mg Documented by: Methylergonovine Maleate (Methylergonovine 0.2 Mg/Ml Ampul) 0.2 mg IM X1 PRN PRN Reason: Excess bleeding/uterine atony Ondansetron HCl (Ondansetron 4 Mg/2 Ml Vial) 4 mg IV Q4H PRN PRN PRN Reason: Nausea Senna/Docusate Sodium (Senna/Docusate Sodium 1 Tablet) 1 - 2 tablet PO DAILY PRN PRN PRN Reason: Constipation Simethicone (Simethicone 80 Mg Tablet) 80 mg PO PCHS PRN PRN Reason: Indigestion/Stomach pain Sodium Chloride (0.9% Saline Lock 10 Ml Syringe) 5 - 15 ml IV UD PRN PRN Reason: SALINE FLUSH Last Admin: 08/13/20 11:01 Dose: 10 ml Documented by: Medical Necessity - Tobacco Use Smoking Status: Current every day smoker Assessment/Plan All Active Problems (Last Updated 08/12/20 @ 18:[address] Isha Varela MD) Maternal anemia in , antepartum (Acute) Vaginal delivery (Acute) First degree perineal laceration (Acute) Chlamydia infection affecting in third trimester (Acute) Trichomonal vaginitis during in third trimester (Acute) PPD #1- 1st degree Routine care support Discharge home
--- NOTE | 2020-08-14 08:29 | DCINST_ITS ---
Discharge Activity: Return to Normal Activity May resume sexual activity in: 6-8 weeks Additional Instructions: If you experience any of the following, contact your healthcare provider. * Bleeding that soaks a pad every hour for 2 hours * Fever 100.4 or higher * Unrelieved incision or abdominal pain * Swelling, redness, discharge or bleeding from your incision or episiotomy site * Your incision begins to separate * Problems urinating (including inability to urinate or burning while urin ating). * Visual changes * Severe headache * Flu-like symptoms * Pain or redness in one of both of your breasts * Pain, warmth, tenderness or swelling in your legs, especially the calf area * Frequent nausea and vomiting * Symptoms of depression or anxiety If you experience any of the following, call 911 or go to the nearest Emergency Room. * Chest pain * Problems breathing * Seizure activity * Partial or complete paralysis of a body part, slurred speech, weakness or drooping of the face, or a sudden inability to walk or hold your balance Allergies/Adverse Reactions: Allergies morphine Allergy (Verified 12/22/19 14:27) shaking, feels like body shuts down pt also states it's difficult to breathe Medications to take at Discharge Albuterol IH (ProAir) [Proair Hfa] 1 puff INHALATION Q4H PRN PRN 10/02/19 Pnv No.95/Ferrous Fum/Folic AC [ Caplet] 1 ea PO DAILY 12/22/19 Please Follow Up With: office When: 5 weeks for PP and to discuss Tubal ligation Primary Care Physician: Rajiv Kohler DO [Primary Care Provider] - Test Results: Test results from this visit will be discussed in further detail at your follow- up appointment, if applicable.
--- NOTE | 2020-08-14 08:29 | PCM.DCVAG ---
Discharge Activity: Return to Normal Activity May resume sexual activity in: 6-8 weeks Additional Instructions: If you experience any of the following, contact your healthcare provider. Bleeding that soaks a pad every hour for 2 hours Fever 100.4 or higher Unrelieved incision or abdominal pain Swelling, redness, discharge or bleeding from your incision or episiotomy site Your incision begins to separate Problems urinating (including inability to urinate or burning while urinating). Visual changes Severe headache Flu-like symptoms Pain or redness in one of both of your breasts Pain, warmth, tenderness or swelling in your legs, especially the calf area Frequent nausea and vomiting Symptoms of depression or anxiety If you experience any of the following, call 911 or go to the nearest Emergency Room. Chest pain Problems breathing Seizure activity Partial or complete paralysis of a body part, slurred speech, weakness or drooping of the face, or a sudden inability to walk or hold your balance Allergies/Adverse Reactions: Allergies morphine Allergy (Verified 12/22/19 14:27) shaking, feels like body shuts down pt also states it's difficult to breathe Medications to take at Discharge Albuterol IH (ProAir) [Proair Hfa] 1 puff INHALATION Q4H PRN PRN 10/02/19 Pnv No.95/Ferrous Fum/Folic AC [ Caplet] 1 ea PO DAILY 12/22/19 Please Follow Up With: office When: 5 weeks for PP and to discuss Tubal ligation Primary Care Physician: Rajiv Kohler DO [Primary Care Provider] - Test Results: Test results from this visit will be discussed in further detail at your follow-up appointment, if applicable.
== END 2020-08-14 13:05 | disposition home or self-care (01) | DRG 560 ==
PROVIDERS: Obstetrics & Gynecology; Admitting Provider Advanced Practice Midwife; PCP Family Medicine; Visit Provider Advanced Practice Midwife
DX: O76 Abnormality in fetal heart rate and rhythm complicating labor and delivery (principal); O69.81X0 Labor and delivery complicated by cord around neck, without compression, not applicable or unspecified; O99.02 Anemia complicating childbirth; D64.9 Anemia, unspecified; O77.0 Labor and delivery complicated by meconium in amniotic fluid; O70.0 First degree perineal laceration during delivery; Z20.822 Contact with and (suspected) exposure to COVID-19; O99.52 Diseases of the respiratory system complicating childbirth; J45.909 Unspecified asthma, uncomplicated; O99.334 Smoking (tobacco) complicating childbirth; F17.200 Nicotine dependence, unspecified, uncomplicated; Z86.19 Personal history of other infectious and parasitic diseases; Z3A.40 40 weeks gestation of pregnancy; Z37.0 Single live birth
CPT/HCPCS: 59025; 59050; 85025; 85027; 86850; 86900; 86901; 87426; 99218; J7120; A4216; G0378; J2405

== ENCOUNTER 2020-10-04 14:15 | Emergency (ER) | payer MEDICAID, SELFPAY ==
[2020-08-12 16:05] VITALS: BMI 28.8
[2020-10-04 14:16] VITALS: BP 117/59; PULSE 79; RESP 14; TEMP 36.4; O2SAT 98; BMI 29.5
--- NOTE | 2020-10-04 14:32 | RAD_ITS ---
STUDY: X-RAY - LEFT WRIST REASON FOR EXAM: Female, 24 years old. injury TECHNIQUE: 3 view(s) of the wrist were obtained. COMPARISON: None. FINDINGS: Nondisplaced fracture of the distal radial metaphysis with cortical buckling along the lateral surface. Normal radiocarpal articulation. Normal distal radioulnar articulation. Normal carpal bones. Normal carpal articulations. Normal carpometacarpal articulation of the thumb. Normal second through fifth carpometacarpal articulations. Normal visualized metacarpal bones. There is soft tissue swelling. RAD/Wrist min 3 Views IMPRESSION: Nondisplaced distal radial fracture. Electronically Signed: Shankar Meléndez MD ([place]) at 14:43 EDT , Service support ,
[2020-10-04] MEDS: HYDROcodone Bitartrate/Apap 5/325 Tablet PO (14:46)
[2020-10-04] MEDS: Ibuprofen 600 MG Tablet PO (14:47)
--- NOTE | 2020-10-04 15:02 | ED.VIS.GEN ---
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 She notes limited range of motion due to pain. She denies any other injuries. Past Medical History - Allergies and Home Meds Allergies/Adverse Reactions: Allergies morphine Allergy (Verified 10/04/20 14:16) shaking, feels like body shuts down pt also states it's difficult to breathe Primary Care Physician: Rajiv Kohler DO [NON-STAFF] - Past Medical History: None Surgical History: noncontributory Lives: With Family Smoking Status: Current every day smoker Drugs: None Review of Systems General: Denies: Chills, Fever, Sweats Eyes: Denies: Visual changes - bilaterally, Diplopia ENT: Denies: Rhinorrhea, Sore throat Cardiovascular: Denies: Chest pain, Palpitations Respiratory: Denies: Dyspnea, Cough, Dyspnea on exertion Gastrointestinal: Denies: Abdominal pain, Nausea, Vomiting, Diarrhea, Melena, Hematochezia Genitourinary: Denies: Dysuria, Hematuria, Frequency Musculoskeletal: Reports: Extremity Pain. Denies: Back pain Skin: Denies: Rash, Wounds Neurological: Denies: Headache, Weakness, Numbness Physical Exam Vital Signs/Narrative: Vital Signs Temp Pulse Resp BP Pulse Ox 10/04/20 14:16 97.6 F L 79 14 117/59 L 98 Inital Vital Signs reviewed: Yes General: Well nourished, Well developed, No Acute Distress Head: Normocephalic, Atraumatic Eyes: Perrl, EOMI ENT: Moist mucous membranes, No rhinorrhea Neck: Supple, Nontender Cardiovascular: Regular rate, Regular rhythm, No murmurs Respiratory: No distress, CTA bilaterally, Chest nontender Abdomen: Soft, Nontender, Nondistended, Normal bowel sounds Back: Nontender, Normal Inspection Extremities: Tenderness - Mild swelling over the dorsum of the left wrist. Limited range of motion secondary to pain. Tenderness along the distal radius. Neurovascular intact distally. Skin: Normal color, No rash Neurological: Alert, Oriented x3, Cranial nerves II-XII grossly intact, Normal Strength, Normal Sensation Psychological: Normal affect, Normal Mood Diagnostic/Tx/Re-eval Clinical Impression(s) from Imaging Studies Wrist X-Ray 10/04/20 14:32 IMPRESSION: Nondisplaced distal radial fracture. Electronically Signed: Shankar Meléndez MD ([place]) at 14:43 EDT , Service support , - Medical Decision Making My interpretation of the plain films of the left wrist is a nondisplaced distal radius fracture. Patient was placed in a AP plaster splint made by this physician. Neurovascular intact pre and post application. She will be referred to on-call orthopedics. Dr. Mcgrath is on-call. ED Disposition - Plan for ED Patient: Disposition: Home or Assisted Living Diagnosis: Fracture of radius, distal, closed Instructions: ED Fracture, Wrist, General Prescriptions: Hydrocodone Bitart/Apap 5-325 [[place] 5MG-325MG] 1 tablet PO Q6H PRN PRN 3 Days #12 tab PRN Reason: Pain Prescription Printed Referrals: Lina Mcgrath DO [STAFF PHYSICIAN] - As soon as possible
[2020-10-04 15:20] VITALS: PULSE 84; RESP 16; O2SAT 98
== END 2020-10-04 15:21 | disposition home or self-care (01) ==
PROVIDERS: Emergency Provider Emergency Medicine; PCP Nurse Practitioner Primary Care
DX: S52.502A Unspecified fracture of the lower end of left radius, initial encounter for closed fracture (principal); V00.121A Fall from non-in-line roller-skates, initial encounter; Y93.51 Activity, roller skating (inline) and skateboarding; Y92.331 Roller skating rink as the place of occurrence of the external cause; Y99.9 Unspecified external cause status; F17.200 Nicotine dependence, unspecified, uncomplicated
CPT/HCPCS: 29125; 73110; 99283

== ENCOUNTER → 2020-10-14 08:00 | Outpatient (CLI) | payer MEDICAID, SELFPAY ==
--- NOTE | 2020-10-14 08:01 | MRI_ITS ---
STUDY: MRI LEFT WRIST WITHOUT CONTRAST REASON FOR EXAM: Distal left radial fracture, left wrist pain, evaluate for scaphoid fracture and extensor pollicis longus tendon injury. TECHNIQUE: Standardized fat and water weighted pulse sequences were obtained in all 3 orthogonal planes. COMPARISON: Radiographs 10/06/2020. FINDINGS: There is a nondisplaced fracture of the distal radius (T1 coronal images 12-16). Normal distal radioulnar articulation (DRUJ). Normal triangular fibrocartilaginous complex (TFCC). Normal carpal bones. Normal radiocarpal, intercarpal and midcarpal articulations. Normal pisotriquetral articulation. Normal visualized interosseous scapholunate ligament. There is hemorrhagic tenosynovitis of the second dorsal compartment (T1 axial images 13-20). There is no demonstrated discontinuity of the extensor pollicis longus tendon. Normal flexor tendons. Normal carpal tunnel with a normal median nerve. Normal carpometacarpal articulation of the thumb. Normal second through fifth carpometacarpal articulations. Normal visualized metacarpal bones. There is mild edema in the pronator quadratus muscle (inversion recovery axial images 22-25). MRI/Upper Ext Joint Only(Routine) IMPRESSION: Nondisplaced distal radial fracture with associated mild edema in the pronator quadratus muscle. Hemorrhagic tenosynovitis of the extensor carpi radialis brevis and longus tendons. No demonstrated scaphoid fracture or extensor pollicis longus tendon injury. Electronically Signed: Issac Zamorano MD at 9:45 EDT Tel , Service support ,
== END ==
PROVIDERS: PCP Nurse Practitioner Primary Care; Referring Provider Physician Assistant; Visit Provider Physician Assistant
DX: S52.552A Other extraarticular fracture of lower end of left radius, initial encounter for closed fracture (principal); X58.XXXA Exposure to other specified factors, initial encounter; Y93.9 Activity, unspecified; Y92.9 Unspecified place or not applicable; Y99.9 Unspecified external cause status
CPT/HCPCS: 73221

== ENCOUNTER 2020-10-30 05:49 | Day surgery (SDC) | payer MEDICAID, SELFPAY ==
[2020-08-12 16:05] VITALS: BMI 28.8
--- NOTE | 2020-10-22 08:06 | PCM.HP.BLA ---
History and Physical Date of Admission: 10/30/20 Isha Bowenssammykylee Nichole Physician Specialty: BUSINESS FUNCTIONAL ANALYST H&P ? Signed Encounter Date: 10/17/2020 Expand AllCollapse All Expand All by Default Hide copied text Rosaura for details Pre-Op History and Physical ? Pt here today for surgical consultation for elective sterilization. Patient previously signed a title 19 form in June 2020. Patient declines any long-acting reversible contraceptives and does not desire any further childbearing capabilities. Patient would like to proceed with a laparoscopic bilateral salpingectomy. ? HPI: The patient is a 24 year old female presenting for pre-operative visit. She is scheduled for Laparoscopic Bilateral salpingectomy, for desires sterilization on 10/30/20. Procedure discussed along with risks, benefits and complications. Other alternatives discussed for management. Consent form signed? Yes. ? ? PAST MEDICAL HISTORY PAST MEDICAL HISTORY Diagnosis Date ? ADHD (attention deficit hyperactivity disorder) ? ? Anemia ? ? Asthma ? ? sports induced ? Chlamydia ? ? Depression ? ? and anxiety ? History of pre-eclampsia in prior , currently ? ? depression ? ? Rh incompatibility ? ? ? PAST SURGICAL HISTORY PAST SURGICAL HISTORY Procedure Laterality Date ? FOOT SURGERY HX ? 2010 ? plantars wart removal ? TONSILLECTOMY HX ? CURRENT MEDICATIONS Current Outpatient Medications Medication Sig Dispense Refill ? meloxicam (MOBIC) 15 mg tablet Take by mouth. ? ? ? albuterol HFA (PROAIR HFA) 90 mcg/actuation inhaler Inhale 2 Puffs as instructed. ? ? ? simethicone, chewable (MYLICON) 80 mg chewable tablet Take 1 tablet by mouth every 6 hours as needed. 30 tablet 0 ? No current facility-administered medications for this visit. ? ? ALLERGIES: Morphine ? PERSONAL HISTORY: SOCIAL HISTORY Social History ? Tobacco Use ? Smoking status: Current Every Day Smoker ? ? Years: 16.00 ? Smokeless tobacco: Never Used ? Tobacco comment: 5 cigarette a day Vaping Use ? Vaping Use: Former ? Quit date: 12/12/2017 Substance Use Topics ? Alcohol use: Not Currently ? Drug use: Never ? FAMILY HISTORY: FAMILY HISTORY FAMILY HISTORY Problem Relation Age of Onset ? Cancer Mother ? ? skin cancer ? Suicide / Suicidal Behaviors Father ? ? No Known Problems Sister ? ? other (PCOS) Sister ? ? No Known Problems Sister ? ? Colon Cancer Maternal Grandmother ? ? Heart Maternal Grandfather ? ? other (Crohn's Disease) Maternal Grandfather ? ? No Known Problems Paternal Grandmother ? ? No Known Problems Paternal Grandfather ? ? No Known Problems Son ? ? ? REVIEW OF SYMPTOMS: negative except as noted above PHYSICAL EXAMINATION: ? VITALS: Blood pressure 112/74, weight 177 lb (80.3 kg), last menstrual period 09/30/2020, not currently . ? GENERAL: The patient is well nourished, well hydrated in no acute distress. , The patient is oriented to time, place, and person. NECK: full range of motion ? IMPRESSION: 24yo who desires permanent sterilization. ? PLAN: Laparoscopic bilateral salpingectomy ? 1) declines LARCs 2) understands this procedure is permanent and cannot be reversed. She also understands the risk of regret with this procedure and still wishes to proceed ? Pt has been counseled on risks/benefits and alternatives of surgery including but not limited to anesthesia, bleeding, infection, injury to pelvic structures including bowel, bladder, ureters and vessels. Pt wishes to proceed with surgery at this time. ? Has MOBIC for post op pain, recommend tylenol PRN and Mylicon ordered ? ? I have reviewed and updated past medical and surgical history, medications and allergies Isha Varela ?3:36 PM Office Visit on 10/17/2020 Office Visit on 10/17/2020 Note shared with patient Procedure Criteria Procedure Type: Elective COVID Risk Discussion: The surgeon/proceduralist and patient have discussed in detail the risk of exposure to and/or potential harm posed by the COVID-19 virus with having a surgery/procedure at this time versus the risk of delaying the surgery/procedure. It is not possible to know either the risk of delaying the surgery or procedure or chance of getting an infection with perfect accuracy, but a joint decision was made between the patient and the surgeon/proceduralist to proceed at this time with the scheduled surgery/procedure as indicated on the consent form.
[2020-10-29 12:35] LABS: Hematocrit 41.6 % (37-47); Hemoglobin 13.4 g/dL (12.0-15.0); Mean Corp Hgb Conc 32.2 g/dL (32-36); Mean Corpuscular Hgb 28.6 pg (27.0-32.0); Mean Corpuscular Volume 88.7 fL (81-99); Mean Platelet Vol. 10.3 fl (6.2-12.0); Platelet Count 352 K/mm3 (150-450); RBC Distribution Width CV 13.3 % (11.6-14.6); RBC Distribution Width SD 43.7 fl (35.1-43.9); Red Blood Count 4.69 M/mm3 (4.2-5.4); White Blood Count 6.2 K/mm3 (4.4-11.0)
[2020-10-29 12:43] LABS: Prothrombin Time (Protime)PT. 12.6 SECONDS (11.7-14.9)
[2020-10-29 12:44] LABS: Partial Thromboplast Time 29.6 Seconds (24.1-36.2)
[2020-10-29 13:10] LABS: AST(SGOT) 26 U/L (15-37); Alanine Aminotransfer ALT/SGPT 52 U/L (13-56); Albumin, Serum 3.8 g/dL (3.2-5.0); Alkaline Phosphatase 107 U/L (45-117); Bilirubin, Direct 0.11 mg/dL (0.00-0.30); Globulin 3.8 g/dL (2.2-4.2); Protein, Total 7.6 g/dL (6.4-8.2)
[2020-10-30] VITALS (7 sets, daily range): BP systolic 106–118; BP diastolic 63–80; PULSE 71–90; RESP 16; TEMP 36.2–36.4; O2SAT 97–100; BMI 30.9
[2020-10-30 06:22] LABS: Internal QC Validated? YES +Cl - CLEAR BKGD; Pregnancy, Urine Negative Negative
[2020-10-30] MEDS: Lactated Ringers 1,000 ML 100 ML IV ×2 (06:28→08:55)
--- NOTE | 2020-10-30 07:30 | FALS_PTH ---
PATIENT: LILLI CARRILLO LOC: [facility] – [place] U#:[id number] AGE/SX: 24/F ROOM: RE10/30/[address]: Dr. Isha Hall, MDDOB: 1995 BED: DIS: 10/30/2020 SPEC #: [id number] RECD: 10/30/20 10:37 STATUS: TARYN JAZ #: [id number] MARIA ELENA: 10/30/20 07:[address]: Isha Hall DEPT: SURGICAL PATHOLOGY RECD BY: Estella Thacker ENTERED: 10/30/20 12:37 SP TYPE: FALL TUBES OTHR DR: BRUCE Langford Tissues: Fallopian tube Procedures: Surgery Specimen Level II HEADER OPERATION: Laparoscopic salpingectomy PRE-OP DIAGNOSIS: Sterilization TISSUE SUBMITTED: Bilateral fallopian tubes MICROSCOPIC DIAGNOSIS Right and left fallopian tubes, bilateral salpingectomies: Two complete segments of fallopian tubes with no pathologic change. AM:kranthi 10/31/2020 MICROSCOPIC DESCRIPTION Slides are reviewed. GROSS DESCRIPTION Received in fixative is one container labeled with the patient's name and designated bilateral fallopian tubes. The specimen consists of bilateral fallopian tubes including fimbrial ends each measuring 6 cm in length and 0.5 cm in diameter. The fallopian tubes are not identified as right or left. Sections reveal unremarkable cut surfaces. Warp Knitter Helper sections are submitted in two cassettes with each cassette containing one fallopian tube. / PEPE:kranthi 10/30/20 TC:4 CPT: 91156 x2
--- NOTE | 2020-10-30 07:31 | DCINST_ITS ---
Discharge Diet: No Restrictions, - - Increase fluid intake for 48 hours. Discharge Activity: Return to Normal Activity, May Drive - when you are no longer taking narcotic pain medications., May Shower, May Take a Tub Bath - in 7 days., - - Ambulate often the next week after surgery. May resume sexual activity in: 1 week Lifting Restrictions: 20-25 Additional Activity Instructions:: Nothing in the vagina for the next 5 days. Call your doctor if your incision/area has: Continuous Slow Oozing, Sudden Increased Bleeding, Increased Pain/ Swelling, Increased Redness, Foul Smelling Discharge, Swelling at the incision site Call your doctor if you observe: Fever of 101 or Higher Cleanse incision/area with: - - You have skin glue over your incision sites do not pick it off. You may shower and let the soap and water run over the areas and then dab dry. Allergies/Adverse Reactions: Allergies morphine Allergy (Verified 10/30/20 06:20) shaking, feels like body shuts down pt also states it's difficult to breathe Medications to take at Discharge Albuterol IH (ProAir) [Proair Hfa] 1 puff INHALATION Q4H PRN PRN 10/02/19 meloxicam 15 mg tablet 15 mg PO DAILY #21 tablet 10/06/20 Acetaminophen [Tylenol] 325 mg PO Q6H PRN PRN 10/23/20 Effexor 30 mg DAILY 10/30/20 Primary Care Physician: Eliezer Dela Cruz NP, NURSE COMPANION-C [Primary Care Provider] - Test Results: Test results from this visit will be discussed in further detail at your follow- up appointment, if applicable. Please Follow Up With: Isha Hall MD When: 2 weeks- [phone]
[2020-10-30] MEDS: Bupivacaine Mpf 0.5% 30 ML VIAL (07:56)
--- NOTE | 2020-10-30 08:03 | PCM.OPRPT ---
Report of Operation Date of Procedure: 10/30/20 - start 738 end 800 Pre-Operative Diagnosis: Desires sterilization Post-Operative Diagnosis: Same Surgery/Procedure Performed:: Laparoscopic bilateral salpingectomy rabbit dresser: Lidya De Santiago Type of Anesthesia:: General Special Medications: 0.5% marcaine Specimen's removed: bilateral fallopian tubes Estimated Blood Loss (mL): <5cc Fluids Replaced: 500 Description of Procedure: After informed consent was obtained patient was taken to the operating room she was placed in supine position she was given anesthesia. She was then placed in the [facility] stirru and she was prepped and draped in normal sterile fashion. Bladder was drained prior to the start of procedure. At this time attention was turned to the vaginal portion where weighted speculum placed at posterior fornix vagina single-tooth tenaculum was used to gently grasp the anterior lip of the cervix. uterus was gently sounded to approximately 8cm. Uterine manipulator was placed without difficulty. Legs then placed in parallel with the abdomen the tenaculum and the weighted speculum were removed. 2 towel clamps were placed at level of umbilicus. Marcaine was injected infraumbilical and a small incision was made. The 5 mm trocar was placed under direct visualization. CO2 gas was used to insufflate the intra-abdominal cavity. Upon inspection no gross abnormalities appreciated- the uterus tubes and ovaries appeared to be normal. At this time then the LLQ and RLQ ports were placed First Marcaine was injected and small incision was made a knife and the 5 mm trocars were placed. At this time then tubes were traced back to the fimbriated ends. Ligasure was used to coagulate and ligate along mesosalpinx bilaterally until tubes removed completely. Good hemostasis was appreciated. At this time procedure was deemed complete successful. The gas was desufflated on from the intra-abdominal cavity. The trochars were removed. Skin was closed using 4-0 Monocryl in a subcutaneous fashion. Dermabond glue was placed. Instrument lap and needle counts were correct ?2. The uterine manipulator was removed. Vaginal sweep was performed it was negative. There were no complications anticipated normal postoperative course for this patient. Grafts/Implants Used: none - Complications none - Admit VTE Documentation VTE Present on Admission: Yes VTE Mechan Device Prophylaxis: SCD's VTE Pharm Prophylaxis ordered?: No
== END 2020-10-30 10:13 | disposition home or self-care (01) ==
LOC: SDC 05:49 → AC 05:49
PROVIDERS: Anesthesiology; PCP Nurse Practitioner Primary Care; Referring Provider Obstetrics & Gynecology; Visit Provider Obstetrics & Gynecology
PROC: (CPT 58661; principal; 2020-10-30 07:15)
DX: Z30.2 Encounter for sterilization (principal); Z20.822 Contact with and (suspected) exposure to COVID-19; F32.9 Major depressive disorder, single episode, unspecified; F41.9 Anxiety disorder, unspecified; F17.210 Nicotine dependence, cigarettes, uncomplicated; Z79.899 Other long term (current) drug therapy
CPT/HCPCS: 00840; 58661; 36415; 80076; 81025; 85027; 85610; 85730; 87426; 88302; C9803; J7120; J2405

== ENCOUNTER 2021-02-11 08:58 | Emergency (ER) | payer MEDICAID, SELFPAY ==
[2020-12-19 14:44] VITALS: BMI 30.9
[2021-02-11 08:59] VITALS: BP 147/128; PULSE 129; RESP 18; TEMP 36.6; O2SAT 99; BMI 30.7
--- NOTE | 2021-02-11 09:22 | EDS_ITS ---
HPI HPI - URI History of Present Illness Chief Complaint: Cough Detail of Chief Complaint: Patient presents with cough that started yesterday Informant: patient Narrative Narrative: Patient complains of a cough as well as mild sore throat and body aches that started yesterday. At times she is bringing up some yellow-green phlegm. She complains of some mild sinus pressure. Patient states that her son had an upper respiratory infection last week and was tested for Covid and was negative. Her sons feeling improved and symptoms of resolved. Patient has not had the Covid vaccine and has not had Covid. She denies fevers. She complains of some mild chest discomfort with cough and headache with cough. Prior similar symptoms: No ROS ROS ED Constitutional Constitutional ED: Reports systems reviewed and no addt'l complaints, except as documented; Denies body ache(s), change in weight or chills Eyes Eyes: Denies acute decrease in peripheral vision, change in vision, double vision or loss of vision ENT ENT ED: Reports none and sore throat; Denies ear pain, lip swelling, loss taste/smell, neck pain or otalgia Cardiovascular Cardiovascular: Reports none; Denies abdominal pain, chest pain with activity, leg edema, lightheadedness, palpitations, rapid heart rate or syncope Respiratory/Chest Respiratory/Chest: Reports none, cough and sputum; Denies change in mental status, dry cough, dyspnea, hemoptysis, shortness of breath at rest or shortness of breath with exertion Gastrointestinal Gastrointestinal: Reports none; Denies abdominal pain, change in stool c haracter, diarrhea, hematemesis, hematochezia, melena, rectal bleeding or vomiting Genitourinary Genitourinary ED: Reports none; Denies abdominal discomfort, anuria, dysuria, genital pain or polyuria Musculoskeletal Musculoskeletal: Reports none and myalgias; Denies arthralgias, back pain, difficulty walking, extremity pain or muscle weakness Integumentary Reports none; Denies abscess or rash Neurologic Neurologic: Reports none; Denies abnormal gait, confusion, focal weakness, frequent falls, headache(s), loss of vision, numbness, paresthesias, radicular pain, vertigo or weakness Psychiatric Psychiatric: Reports systems reviewed and no addt'l complaints, except as documented and none; Denies behavioral changes, confusion, difficulty concentrating, hallucinations, suicidal ideation, tactile hallucinations or visual hallucinations Endocrine Endocrinology: Denies none, cold intolerance, excessive sweating, fatigue or heat intolerance Hematologic/Lymphatic Hematologic/Lymphatic: Reports none; Denies anemia, easy bleeding or easy bruising Allergic/Immunologic Allergic/Immunologic ED: Denies as per HPI, none, lip swelling, mouth swelling, throat swelling, tongue swelling or hives PFSH PFSH Medical History (Updated 02/11/21 @ 10:[address] Margarita Maradiaga, DO) Anxiety Chlamydia infection affecting Home Medications albuterol sulfate 1 puff INHALATION Q4H PRN PRN 10/02/19 [History Last Taken Unknown] Effexor 30 mg DAILY 10/30/20 [History Last Taken Unknown] benzonatate [Tessalon Perles] 100 mg PO TID PRN #20 cap 02/11/21 [Rx Last Taken Unknown] Allergy/AdvReac Type Severity Reaction Status Date / Time morphine Allergy shaking, Verified 02/11/21 09:02 feels like body shuts down Social History (Updated 10/24/20 @ 10:49 by JUAN DIEGO [place]) Smoking Status: Light Smoker (<10/day) EXAM Physical Exam Const Vital Signs: 02/11/21 08:59 02/11/21 09:31 Temperature 98 F Temperature Source Temporal Pulse Rate 129 H Respiratory Rate 18 Respiratory Effort Normal Non-Labored Respiratory Depth Normal Respiratory Pattern Normal Blood Pressure 147/128 H Blood Pressure Mean 134 Pulse Ox 99 Oxygen Delivery Method Room Air Positive well nourished and well developed General Appearance ED: well developed and NAD HEENT Reports TM's clear and moist mucous membranes normocephalic and atraumatic; Negative for trauma or tenderness Tympanic Membrane ED: Yes TM's clear Eyes PERRL and EOMs intact bilaterally General Eye ED: Negative for pale conjunctiva or scleral icterus Neck no lymphadenopathy, supple and no JVD General: Negative for tenderness Chest Wall inspection of chest normal and palpation of chest normal Chest: Negative for tenderness Resp normal respiratory effort and clear to auscultation bilaterally Effort and Inspection: Negative for respiratory distress or pain with movement Auscultation: Negative for rhonchi, wheezes or diminished lung sounds Cardio regular rate, regular rhythm, S1 normal heart sound, S2 normal heart sound and no murmurs Rate: tachycardic Peripheral Pulses: pulses 2+ throughout GI normal to inspection, nondistended, normoactive bowel sounds, soft to palpation, non-tender, non-distended and no masses Back/Spine no CVA tenderness and no thoracic nor lumbar tenderness Extremity normal to inspection General Extremety ED: Negative for edema General Extremity: Negative for edema Neuro oriented x3, CN's II-XII intact bilaterally, no sensory deficits noted and gait normal Sensorium / Orientation: awake, alert, oriented to person, oriented to place and oriented to time Motor Exam: strength 5/5 throughout and strength abnormal Psych mental status grossly normal Skin no rashes or lesions noted and no wounds MDM MDM MDM Narrative Medical decision making narrative: COVID-19 rapid test was negative. Discussed case with patient and we discussed empirically starting patient on antibiotics versus expectant waiting. At this point I suspect likely a viral etiology and she is comfortable waiting and not empirically starting antibiotics. Patient will return if increasing shortness of breath or conditions worsen anyway. We will treat her with Tessalon Perles for her cough. Radiography Diagnostic Testing: Radiology Impression Chest X-Ray 02/11/21 09:45 IMPRESSION: Normal x-ray examination of the chest. Electronically Signed: Grady Montoya MD at 9:59 EDT Tel , Service support , 1 view chest x-ray obtained interpreted by myself as normal. Radiology in agreement. Discharge Plan Triage Chief Complaint: Cough ED Provider: Margarita Maradiaga Dx/Rx/DC Orders Clinical Impression: Viral URI Instructions: ED URI, Viral, No Abx (Adult) Prescriptions: New benzonatate [Tessalon Perles] 100 mg capsule 100 mg PO TID PRN (Reason: cough) Qty: 20 RF: 0 No Action albuterol sulfate 1 PUFF inhaler 1 puff INHALATION Q4H PRN PRN (Reason: Wheezing) RF: 0 Effexor 30 mg DAILY RF: 0 Primary Care Provider: Eliezer Dela Cruz NP Referrals: Eliezer Dela Cruz NP, SENIOR APPLICATIONS ARCHITECT-C [Primary Care Provider] - 3-5 Days Disposition Disposition: Home, Self Care
--- NOTE | 2021-02-11 09:45 | RAD_ITS ---
STUDY: X-RAY CHEST REASON FOR EXAM: Female, 25 years old. cough TECHNIQUE: Single AP portable view of the chest. COMPARISON: 10/02/2019 FINDINGS: The lungs are clear and expanded. There is no demonstrated pleural abnormality. Normal size heart. Normal mediastinum and eboni. Normal visualized pulmonary arteries. Normal visualized aortic arch and descending thoracic aorta. Normal visualized thoracic spine. Normal visualized ribs, clavicles, and shoulders. There is no demonstrated abnormality of the visualized soft tissue structures of the upper abdomen. RAD/Chest 1 View (Portable) IMPRESSION: Normal x-ray examination of the chest. Electronically Signed: Grady Montoya MD at 9:59 EDT Tel , Service support ,
== END 2021-02-11 10:34 | disposition home or self-care (01) ==
PROVIDERS: Emergency Provider Emergency Medicine; PCP Nurse Practitioner Primary Care
DX: J06.9 Acute upper respiratory infection, unspecified (principal); Z20.822 Contact with and (suspected) exposure to COVID-19; F41.9 Anxiety disorder, unspecified; F17.200 Nicotine dependence, unspecified, uncomplicated; Z79.899 Other long term (current) drug therapy
CPT/HCPCS: 71045; 87426; 99282

== ENCOUNTER 2021-06-20 14:32 | Emergency (ER) | payer MEDICAID, SELFPAY ==
[2021-06-20 14:32] VITALS: BP 109/67; PULSE 87; RESP 16; TEMP 36.6; O2SAT 98
--- NOTE | 2021-06-20 14:35 | RAD_ITS ---
INDICATION: PAIN EXAMINATION/TECHNIQUE: X-RAY - LEFT XR Knee Complete 4 Views or More 4 VIEWS COMPARISON: None. FINDINGS: SOFT TISSUES: No soft tissue swelling or gas. No radiopaque foreign body. BONES/JOINTS: No acute fracture or subluxation.. Normal alignment. Preservation of the joint space.. No sclerotic or destructive changes observed. RAD/Knee 4 or More Views IMPRESSION: Negative. Electronically Signed: Grady Zacarias MD at 15:20 EST Tel , Service support ,
--- NOTE | 2021-06-20 15:38 | ED.VIS.LOWEX ---
HPI History of Present Illness Chief Complaint: Lower Extremity Injury Narrative Narrative: 25-year-old female presenting with left knee pain. She states she slipped on her driveway at about noon and felt like her left knee popped medially and her leg went laterally at the knee she states she has difficulty ambulating on it. It hurts to weight-bear. She denies any direct trauma. Patient states she is wearing compression on this since that time. She is not noted any bruising. PFSH PFSH Medical History Anxiety Chlamydia infection affecting Home Medications albuterol sulfate 1 puff INHALATION Q4H PRN PRN 10/02/19 [History Last Taken Unknown] Effexor 30 mg DAILY 10/30/20 [History Last Taken Unknown] benzonatate [Tessalon Perles] 100 mg PO TID PRN #20 cap 02/11/21 [Rx Last Taken Unknown] naproxen [Naprosyn] 500 mg PO BID #30 tab 06/20/21 [Rx Last Taken Unknown] Allergy/AdvReac Type Severity Reaction Status Date / Time morphine Allergy shaking, Verified 06/20/21 14:34 feels like body shuts down Social History Smoking Status: Light Smoker (<10/day) ROS ROS ED Constitutional Constitutional ED: Denies chills, fever(s) or subjective Eyes Eyes: Denies blurry vision or change in vision ENT ENT ED: Denies rhinorrhea or sore throat Cardiovascular Cardiovascular: Denies chest pain or palpitations Respiratory/Chest Respiratory/Chest: Denies cough or dyspnea Gastrointestinal Gastrointestinal: Denies abdominal pain or nausea Genitourinary Genitourinary ED: Denies dysuria or hematuria Musculoskeletal Musculoskeletal: Reports other Details: Left knee pain Integumentary Denies abscess or rash Neurologic Neurologic: Denies headache(s), paresthesias or weakness EXAM Physical Exam Const Vital Signs: 06/20/21 14:32 Temperature 97.9 F Temperature Source Temporal Pulse Rate 87 Respiratory Rate 16 Blood Pressure 109/67 Blood Pressure Mean 81 Pulse Ox 98 Oxygen Delivery Method Room Air Positive well nourished General Appearance ED: NAD HEENT Reports moist mucous membranes normocephalic and atraumatic Resp normal respiratory effort and clear to auscultation bilaterally Cardio regular rate and regular rhythm Extremity Extremity Narrative: Tenderness palpation over the left knee medially. No gross deformity. No bony tenderness. Extensor mechanism is intact in the left knee. No ligamentous laxity is noted. Mild swelling is present. Neuro oriented x3 Sensorium / Orientation: alert Psych mental status grossly normal Skin no wounds Trauma: Negative for abrasion MDM MDM MDM Narrative Medical decision making narrative: I obtained an x-ray of the left knee which on my interpretation shows no acute fracture or subluxation. Is possible patient has a ligamentous injury or meniscal tear given her pain. She is counseled that she will need orthopedic follow-up and she states she sees Dr. Saenz already. She will make an appointment to see orthopedics. In the meantime she is to use compression on the left knee. She will provide crutches. She is given a prescription for Naprosyn for home. Impression: #1 left knee strain Radiography Diagnostic Testing: Clinical Impression(s) from Imaging Studies Knee X-Ray 06/20/21 14:35 IMPRESSION: Negative. Electronically Signed: Grady Zacarias MD at 15:20 EST Tel , Service support , Discharge Plan Triage Chief Complaint: Lower Extremity Injury ED Provider: Trey Lewis Dx/Rx/DC Orders Instructions: ED Knee Sprain Prescriptions: New naproxen [Naprosyn] 500 mg tablet 500 mg PO BID Qty: 30 RF: 0 No Action albuterol sulfate 1 PUFF inhaler 1 puff INHALATION Q4H PRN PRN (Reason: Wheezing) RF: 0 Effexor 30 mg DAILY RF: 0 benzonatate [Tessalon Perles] 100 mg capsule 100 mg PO TID PRN (Reason: cough) Qty: 20 RF: 0 Primary Care Provider: Eliezer Dela Cruz NP Referrals: Eliezer Dela Cruz NP, EXPLOSIVES DETONATOR-C [Primary Care Provider] - Disposition Disposition: Home, Self Care
[2021-06-20] MEDS: Naproxen 500 MG Tablet PO (15:43)
== END 2021-06-20 15:49 | disposition home or self-care (01) ==
LOC: ED 15:36
PROVIDERS: Emergency Provider Student in an Organized Health Care Education/Training Program; PCP Nurse Practitioner Primary Care
DX: S86.912A Strain of unspecified muscle(s) and tendon(s) at lower leg level, left leg, initial encounter (principal); R26.2 Difficulty in walking, not elsewhere classified; W18.40XA Slipping, tripping and stumbling without falling, unspecified, initial encounter; Y93.9 Activity, unspecified; Y92.008 Other place in unspecified non-institutional (private) residence as the place of occurrence of the external cause; Y99.8 Other external cause status; F41.9 Anxiety disorder, unspecified; F17.200 Nicotine dependence, unspecified, uncomplicated; Z79.1 Long term (current) use of non-steroidal anti-inflammatories (NSAID); Z79.899 Other long term (current) drug therapy
CPT/HCPCS: 73564; 99285

== ENCOUNTER 2021-07-05 17:46 | Emergency (ER) | payer MEDICAID, SELFPAY ==
[2021-07-05 17:46] VITALS: BP 119/70; PULSE 132; RESP 18; TEMP 38.5; O2SAT 97; BMI 30.9
--- NOTE | 2021-07-05 17:56 | RAD_ITS ---
STUDY: X-RAY CHEST REASON FOR EXAM: Female, 25 years old. Fever TECHNIQUE: Frontal view COMPARISON: 02/11/2021 FINDINGS: The lungs are clear and expanded. There is no demonstrated pleural abnormality. Normal size heart. Normal mediastinum and eboni. Normal visualized pulmonary arteries. Normal visualized aortic arch and descending thoracic aorta. Normal visualized thoracic spine. Normal visualized ribs, clavicles, and shoulders. There is no demonstrated abnormality of the visualized soft tissue structures of the upper abdomen. RAD/Chest 1 View (Portable) IMPRESSION: Normal x-ray examination of the chest. Electronically Signed: Dillon Sheppard DO at 19:00 EST Tel [phone], Service support ,
--- NOTE | 2021-07-05 18:02 | EDS_ITS ---
HPI History of Present Illness Chief Complaint: Fever Informant: patient Onset/Context/Timing Onset: Today and Hours Context: Gradual Onset Timing: Continuous Current Severity: Mild Maximum Severity: Mild Narrative Narrative: 25-year-old female history of asthma. States today she developed a fever with intense body aches. Fever as high as 101.3. She denies any vomiting or diarrhea. No dysuria. No shortness of breath. Prior similar symptoms: Yes Recent Illness/Hospitalization: No PFSH PFSH Medical History Anxiety Chlamydia infection affecting Home Medications dexamethasone [Decadron] 6 mg PO DAILY 7 Days #7 tab 07/05/21 [Rx Last Taken Unknown] Allergy/AdvReac Type Severity Reaction Status Date / Time morphine Allergy shaking, Verified 07/05/21 17:46 feels like body shuts down Social History Smoking Status: Light Smoker (<10/day) ROS ROS ED ROS Narrative Fever. Body aches. Review of Systems ROS Unobtainable: Denies due to encephalopathy Constitutional Constitutional ED: Reports fever(s) Eyes Eyes: Denies change in vision ENT ENT ED: Denies ear pain Cardiovascular Cardiovascular: Denies chest pain Respiratory/Chest Respiratory/Chest: Denies cough or dyspnea Gastrointestinal Gastrointestinal: Denies abdominal pain, diarrhea, nausea or vomiting Genitourinary Genitourinary ED: Denies dysuria Musculoskeletal Musculoskeletal: Reports myalgias Integumentary Denies rash Neurologic Neurologic: Denies headache(s) Psychiatric Psychiatric: Denies depression Endocrine Endocrinology: Denies polyuria EXAM Physical Exam Narrative Exam Narrative: 25 female no acute distress vital signs stable temperature 113 does not look septic or toxic does not look dehydrated. HEENT exam unremarkable. Moist with membranes. Posterior pharynx normal. Neck nontender no lymphadenopathy. No meningismus. Lungs clear to auscultation. Heart tachycardic no murmur. Abdomen soft nontender normal bowel sounds no peritoneal signs. Moving all 4 extremities. Calves are nontender without edema. Skin no rashes. Back nontender. Neurologically she is awake and alert with no focal motor deficits. Const Vital Signs: 07/05/21 17:46 07/05/21 17:55 Temperature 101.3 F H Temperature Source Temporal Pulse Rate 132 H Respiratory Rate 18 Respiratory Effort Normal Non-Labored Respiratory Pattern Normal Blood Pressure 119/70 Blood Pressure Mean 86 Pulse Ox 97 Oxygen Delivery Method Room Air Positive well nourished and well developed; Negative for obese, cachectic, contractures or unkempt General Appearance ED: well developed and NAD; Negative for unkempt, cachectic, contractures, cyanotic or diaphoretic Nutritional Appearance: Negative for cachectic or obese HEENT Reports moist mucous membranes Negative for trauma or tenderness Eyes PERRL and EOMs intact bilaterally Neck no lymphadenopathy, supple and no JVD General: Negative for tenderness Chest Wall inspection of chest normal and palpation of chest normal Resp normal respiratory effort and clear to auscultation bilaterally Effort and Inspection: Negative for pain with movement Auscultation: Negative for rales, rhonchi or wheezes Cardio regular rhythm, S1 normal heart sound, S2 normal heart sound and no murmurs; Negative for regular rate Rate: tachycardic GI normal to inspection, nondistended, normoactive bowel sounds, non-tender, non- distended and no masses Inspection: Negative for abdominal distention Auscultation: normoactive bowel sounds Palpation: soft; Negative for tender, guarding or rebound tenderness present Back/Spine no CVA tenderness General Back: Negative for CVA tenderness Cervical Spine: Negative for cervical spine tenderness Thoracic Spine / Upper Back: Negative for thoracic spinal tenderness or paraspinal muscle tenderness Lumbar Spine / Lower Back: Negative for lumbar spinal tenderness Extremity normal to inspection General Extremety ED: Negative for edema or tenderness General Extremity: Negative for edema Neuro oriented x3 Sensorium / Orientation: alert; Negative for orientation impaired, lethargic or stuporous Motor Exam: strength 5/5 throughout Psych mental status grossly normal Appearance: Negative for unkempt Mood & Affect: Negative for depressed or tearful Skin no rashes or lesions noted, no wounds and No skin turgor normal General Skin Exam: Negative for elasticity normal or jaundice MDM MDM MDM Narrative Medical decision making narrative: 25-year-old female benign exam fever treated with p.o. Tylenol. Covid test and chest x-ray. Lab Data Attestation: I reviewed the patient's lab results. Lab results narrative: Rapid Covid antigen test is positive. Radiography Chest X-Ray - ED: 1 View, Read by ED Physician, Heart, Lungs, Mediastinum, Bony Structures and No Acute Disease Diagnostic Testing: Chest x-ray portable single view interpreted myself shows no acute abnormality. No infiltrate. Discharge Plan Triage Chief Complaint: Fever ED Provider: Johnnie Jiang Dx/Rx/DC Orders Clinical Impression: COVID-19 Instructions: Human Coronaviruses Prescriptions: New dexamethasone [Decadron] 6 mg tablet 6 mg PO DAILY 7 Days Qty: 7 RF: 0 Primary Care Provider: Eliezer Dela Cruz NP Referrals: Eliezer Dela Cruz COMPRESSOR ASSEMBLER, COMPRESSOR ASSEMBLER-C [Primary Care Provider] - 1 Week if not improving Activity Restrictions/Additional Instructions: Plenty of fluids and rest. Alternate Tylenol Motrin for fever. Decadron if you start having any shortness of breath or worsening cough. Or wheezing. Follow-up with your primary care physician if not improving or return emergency department if you are feeling a lot worse. Disposition Disposition: Home, Self Care
[2021-07-05] MEDS: Acetaminophen 500 MG Tablet 1000 MG PO (18:06)
== END 2021-07-05 18:54 | disposition home or self-care (01) ==
PROVIDERS: Emergency Provider Emergency Medicine; PCP Nurse Practitioner Primary Care
DX: U07.1 COVID-19 (principal); J45.909 Unspecified asthma, uncomplicated; F17.200 Nicotine dependence, unspecified, uncomplicated
CPT/HCPCS: 71045; 87426; 99283

== ENCOUNTER 2021-10-09 12:57 | Outpatient (RCR) | payer MEDICAID, SELFPAY ==
--- NOTE | 2021-10-09 13:44 | HP.PTEVAL_ITS ---
Patient's Visit Information LILLI CARRILLO is a 25 year old F referred to Physical Therapy by JUAN DIEGO Oates with a diagnosis of L shoulder instability and TOS. Date of Evaluation: 10/09/21 Physical Therapist: EMMANUEL SmithT, OCS, CSCS - Visit Plan Frequency: 3x /Week Duration: 2-4 Weeks Plan: 3x/week for 3-4 weeks for. 1. STM to L UT and scap mm and stretch L UT with 1st rib mobs, median nerve glides. 2. strengthening of RC, scap and postural muscles to help with shoulder instability. Ext rotation very improtant. 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 H/O shoulder instability R also. Whole arm goes numb with lifting arm and better when at side. Tingling pain whenever it is numb. Gets sore in the L shoulder and neck if uses arm alot. Gets t 7/10 at most if reaching up over head. Employed at [employer], this is not the job she hurt herself on at [employer]. Sleep is not a problem. Activities at home are normal. No hobbies. Has 8 yo and 1 yo kid and picks up with R UE instead of L. - Pain l shoulder Pain Intensity (Out of 10): 0 Pain Intensity Range: 0, 7 - Objective Walks normal and I, transfers I, good balance. Tender to palpation L supraspinatus insertion minimally and L UT and scalenes moderately. Posture is forward head and slightly elevated L scap with B scap protraction. cervical aROM is WFL and symmetrical, some tightness L UT. - c/s compression test. + brachial plexus diminishing pulse test with r SB head and median nerve stretch slightly uncomfortable compared to radial and ulnar on L. UE AROM WFL and symmterical. Weakness obvious in B RC and scap 4- but L ext rotatiors are 3+. Slight discomfort. elbow and wrist AROM and strength symmetrical and 4. reflexes 2/3 bi and tri. Sensation UE WNL to gross light touch in UE. - Balance/Special Test Scores Quick DASH Score: 34.0900 - Goals Goal 1:: Patient feel that numbness and soreness are 85% improved to 1/10 at worst. Goal Time Frame: 2-4 Weeks Goal 2:: No pain with movement of UE or soreness after work Goal Time Frame: 2-4 Weeks Goal 3:: quick dash score of 5 or better. Goal Time Frame: 2-4 Weeks Goal 4:: I apporp HEp to minimize future problems Goal Time Frame: 2-4 Weeks - Rehabilitation Potential Physical Therapy Diagnosis: L shoulder instability and pain, TOS effecting comfort with function Rehabilitation Potential: Fair - Anticipated Interventions Patient/Client Instruction: Educate patient on: Condition, Plan of Care For the Purpose of:: To decrease pain, To improve muscle performance and motor function, To increase tolerance to activity/condition/position, To improve ability of physical actions for home/community/work/leisure Therapeutic Exercise to Include: Strength training, Neuromotor development, Scapular Strength/Stabilization For the Purpose of:: To decrease pain, To increase oxygenation perfusion, To increase tolerance to activity/condition/position, To improve ability of physical actions for home/community/work/leisure Manual Therapy Techniques to Include: Mobilization, Passive ROM, Soft tissue mobilization For the Purpose of:: To improve muscle performance and motor function Thank you for the opportunity to evaluate your patient. For Medicare and Medicare HMO plans, please review the plan of care and approve it. It will need to be FAXED BACK to us at [phone] for Medicare purposes. For Medicare only, by signing this I certify the plan of care. Please let me know if there are questions or concerns regarding this plan of care. Physician Signatu re: Date:
--- NOTE | 2021-11-13 08:34 | HP.PT.NRP ---
LILLI CARRILLO was seen in my office for initial evaluation on 10/09/21. The following Plan of Care was established for this patient: Initial Frequency: 3x /Week Initial Duration: 2-4 Weeks Patient/Client Instruction: Educate patient on: Condition, Plan of Care For the Purpose of:: To decrease pain, To improve muscle performance and motor function, To increase tolerance to activity/condition/position, To improve ability of physical actions for home/community/work/leisure Therapeutic Exercise to Include: Strength training, Neuromotor development, Scapular Strength/Stabilization For the Purpose of:: To decrease pain, To increase oxygenation perfusion, To increase tolerance to activity/condition/position, To improve ability of physical actions for home/community/work/leisure Manual Therapy Techniques to Include: Mobilization, Passive ROM, Soft tissue mobilization For the Purpose of:: To improve muscle performance and motor function This patient was last seen in our office 10/09/21. Pertinent comments regarding their Physical therapy will appear below: Pt seen for initial evaluation and then cancelled the next session and no showed for the next 4 despite our phone calls. at this point, it has been over 4 weeks and I will discontinue due to nonattendance. At this point I will be discontinuing this patient from physical therapy. I would be happy to see this patient again in the future if found appropriate by the physician. Thank you! Angel Gary, DPT, OCS, CSCS Balance/Gait/Functional tests - Balance/Special Test Scores Quick DASH Score: 34.0900
== END 2021-10-09 19:00 | disposition home or self-care (01) ==
LOC: PT 12:57
PROVIDERS: PCP Nurse Practitioner Primary Care; Referring Provider Physician Assistant; Visit Provider Physician Assistant
DX: M25.312 Other instability, left shoulder (principal); M54.12 Radiculopathy, cervical region
CPT/HCPCS: 97110; 97162

== ENCOUNTER 2022-09-07 08:34 | Emergency (ER) | payer MEDICAID, SELFPAY ==
[2022-09-07 08:35] VITALS: BP 121/65; BP 128/48; PULSE 83; PULSE 87; RESP 13; RESP 18; TEMP 35.7; O2SAT 97; O2SAT 98; BMI 33.6
--- NOTE | 2022-09-07 08:54 | RAD_ITS ---
STUDY: X-RAY CHEST REASON FOR EXAM: Female, 26 years old. Chest pain TECHNIQUE: PA and lateral views of the chest. COMPARISON: Comparison is made with prior study 07/05/2021. FINDINGS: EKG electrodes are seen. The lungs are clear and expanded. There is no demonstrated pleural abnormality. Normal size heart. Normal mediastinum and eboni. Normal visualized pulmonary arteries. Normal visualized aortic arch and descending thoracic aorta. Normal visualized thoracic spine. Normal visualized ribs, clavicles, and shoulders. There is no demonstrated abnormality of the visualized soft tissue structures of the upper abdomen. RAD/Chest PA and Lateral IMPRESSION: Normal x-ray examination of the chest. Electronically Signed: Eugenio Singh MD at 9:49 EST ,
--- NOTE | 2022-09-07 08:55 | EDS_ITS ---
HPI History of Present Illness Chief Complaint: Chest Pain Informant: patient Onset/Context/Timing Onset: Yesterday Activity at onset: gradual and onset Timing: Continuous Quality: Positive for Dull Location: Left Parasternal (radiates into back just left of middle, upper back) Current Severity: Moderate Maximum Severity: Severe Worsened By: - (lying supine); Not Worsened By Exertion, Movement of Arm, Movement of Torso, Eating, Palpation or Breathing Relieved By: - (sitting up); Not Relieved By Antacids (tried some last night) Associated Symptoms: Negative for Nausea, Vomiting, Diaphoresis, Dyspnea, Cough, Lightheadedness or Palpitations Narrative Narrative: 26-year-old female history of significant anxiety and depression and has been having episodes of chest discomfort such as what she has now for the past 1 or 2 years. Has seen her PCP for this as well as the ER in the past multiple times, according to the patient. Has had EKGs, chest x-rays, blood work, echocardiogram. All normal. She is scheduled for stress test. 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 She states this is similar to other episodes. [facility] Medical History Anxiety Asthma Chlamydia infection affecting Depression Home Medications cyclobenzaprine 5 mg tablet 5 mg PO TID PRN muscle spasm #21 tabs 10/07/21 [Rx Last Taken Unknown] methylprednisolone 4 mg tablets in a dose pack (Medrol (James)) 4 mg PO DAILY #21 tabs 10/07/21 [Rx Last Taken Unknown] pantoprazole 40 mg tablet,delayed release 40 mg PO DAILY #30 tabs 09/07/22 [Rx Last Taken Unknown] Allergy/AdvReac Type Severity Reaction Status Date / Time morphine Allergy shaking, Verified 09/07/22 08:47 feels like body shuts down Surgical History (Updated 09/07/22 @ 08:47 by Pat Ariza) H/O colonoscopy History of tonsillectomy Social History Smoking Status: Light Smoker (<10/day) ROS ROS ED Constitutional Constitutional ED: Denies chills or fever(s) Eyes Eyes: Denies change in vision or diplopia ENT ENT ED: Denies rhinorrhea or sore throat Cardiovascular Cardiovascular: Reports chest pain; Denies palpitations Respiratory/Chest Respiratory/Chest: Denies cough or dyspnea Gastrointestinal Gastrointestinal: Denies abdominal pain, diarrhea, nausea or vomiting Genitourinary Genitourinary ED: Denies dysuria or hematuria Musculoskeletal Musculoskeletal: Reports back pain and extremity pain; Denies neck pain Integumentary Denies abscess or rash Neurologic Neurologic: Denies headache(s), paresthesias or weakness Psychiatric Psychiatric: Reports anxiety; Denies suicidal thoughts EXAM Physical Exam Const Vital Signs: 09/07/22 08:35 09/07/22 08:35 09/07/22 08:50 Temperature 96.2 F L Temperature Source Temporal Pulse Rate 87 83 Respiratory Rate 18 13 Respiratory Effort Normal Non-Labored Respiratory Pattern Normal Blood Pressure 128/48 H 121/65 H Blood Pressure Mean 74 83 Pulse Ox 98 97 Oxygen Delivery Method Room Air Room Air Positive well nourished and well developed General Appearance ED: well developed and NAD HEENT Reports moist mucous membranes normocephalic and atraumatic Eyes PERRL and EOMs intact bilaterally Neck full ROM and supple Resp normal respiratory effort and clear to auscultation bilaterally Cardio regular rate, regular rhythm and no murmurs Peripheral Pulses: pulses 2+ throughout and brachial pulses present bilateral 2+ GI non-tender and non-distended Auscultation: normoactive bowel sounds Palpation: soft Back/Spine no CVA tenderness General Back: other FROM Extremity normal to inspection General Extremety ED: Negative for edema, pulses abnormal or tenderness General Extremity: Negative for edema or pulses abnormal Neuro oriented x3, CN's II-XII intact bilaterally, no sensory deficits noted and gait normal Sensorium / Orientation: awake and alert Motor Exam: strength 5/5 throughout Psych Psych Narrative: Anxious, tearful Skin no rashes or lesions noted and no wounds Heart Score History: Slightly/Non-Suspicious ECG: Normal Age: </= 45 years Risk Factors: 1 or 2 Risk Factors (Smoker) Score: 1 MDM MDM MDM Narrative Medical decision making narrative: EKG interpreted by myself is normal, 2 view chest x-ray interpreted by myself normal as well. No sign of pneumonia or pneumothorax or abnormal mediastinum. Patient was given a GI cocktail the meantime, and on reevaluation all of her symptoms including the left arm discomfort were resolved. Reassured. I think prescribing her PPI for months would be reasonable, and having her follow-up if she continues have discomfort she may be need to be referred to GI but not emergently at this time. Discussed with her she is comfortable with that plan. Radiography Chest X-Ray - ED: 2 View, Read by ED Physician, No Acute Disease and No Infiltrates Diagnostic Testing: Clinical Impression(s) from Imaging Studies Chest X-Ray 09/07/22 08:54 IMPRESSION: Normal x-ray examination of the chest. Electronically Signed: Eugenio Singh MD at 9:49 EST Reading Location ID and State: [address] [place] [address] , Service support , Rhythm Strip Rhythm Strip: Sinus Rhythm Rate: 85 Ectopy: None EKG Initial EKG: Attestation: I personally reviewed and interpreted this EKG as follows: Interpretation: Sinus Rhythm and No Acute Injury Pattern Prior EKG tracings: available for review Prior: Unchanged Discharge Plan Triage Chief Complaint: Chest Pain ED Provider: Ravinder Gonzalez Dx/Rx/DC Orders Clinical Impression: Chest pain, unspecified Instructions: ED Chest Pain, Noncardiac Prescriptions: New pantoprazole 40 mg tablet,delayed release (DR/EC) 40 mg PO DAILY Qty: 30 0RF No Action cyclobenzaprine 5 mg tablet 5 mg PO TID PRN (Reason: muscle spasm) Qty: 21 0RF Rx Instructions: 1/2-1 tab PO TID methylprednisolone [Medrol (James)] 4 mg tablets,dose pack 4 mg PO DAILY Qty: 21 0RF Rx Instructions: one tablet PO as directed Primary Care Provider: Samia Wellington Referrals: Samia Wellington MD [Primary Care Provider] - 1 Week Disposition Disposition: Home, Self Care
--- NOTE | 2022-09-07 08:55 | EKG12_ITS ---
Test Reason : CP Blood Pressure : / mmHG Vent. Rate : 082 BPM Atrial Rate : 082 BPM P-R Int : 146 ms QRS Dur : 082 ms QT Int : 360 ms P-R-T Axes : 057 034 036 degrees QTc Int : 420 ms Normal sinus rhythm with sinus arrhythmia Normal ECG Confirmed by FERCHO CHASE, MALI ([id number]), brands editor JENNI MURPHY ([id number]) on 09/08/2022 1:30:30 PM Referred By: Confirmed By:MALI BRANTLEY MD
[2022-09-07] MEDS: Dicyclomine 10 MG Capsule 20 MG PO (09:00)
[2022-09-07] MEDS: Mag Hydrox/Al Hydrox/Simeth 30 ML UDC PO (09:01)
[2022-09-07] MEDS: Pantoprazole Sodium 40 MG Tablet PO (10:32)
[2022-09-07 10:35] VITALS: BP 114/68; PULSE 85; RESP 16; O2SAT 98
[2022-09-07 10:36] VITALS: BP 102/66; PULSE 86; RESP 18; TEMP 36.7; O2SAT 97
== END 2022-09-07 10:39 | disposition home or self-care (01) ==
PROVIDERS: Emergency Provider Emergency Medicine; PCP Internal Medicine; Visit Provider Emergency Medicine
DX: R07.9 Chest pain, unspecified (principal); F17.200 Nicotine dependence, unspecified, uncomplicated; F41.9 Anxiety disorder, unspecified; F32.A Depression, unspecified
CPT/HCPCS: 71046; 93005; 99284

== ENCOUNTER 2024-03-19 10:50 | Emergency (ER) | payer BC, SELFPAY ==
[2024-03-19 10:51] VITALS: BP 122/71; PULSE 92; RESP 16; TEMP 36.2; O2SAT 98; BMI 32.4
--- NOTE | 2024-03-19 11:15 | EDS_ITS ---
HPI History of Present Illness Chief Complaint: Dental Informant: patient Narrative Narrative: 28-year-old female presenting to the emergency room with chief complaint of dental pain. Patient states that on Tuesday her child got up abruptly from her lap striking her head on her left upper frontal tooth. She states the gum is really red. She has an appointment tomorrow with her dentist. She has had a prior crown on this tooth. No reported fevers. No known heart conditions. PFSH PFSH Medical History Depression Asthma Anxiety Chlamydia infection affecting Home Medications ?Medication ?Instructions ?Recorded ?Last Taken ?Type NK 03/19/24 Unknown History ibuprofen 600 mg tablet 600 mg PO Q6H PRN PRN pain #20 03/19/24 Unknown Rx TABLETS oxycodone-acetaminophen 5 mg-325 1 tab PO Q6H PRN pain 3 days #12 03/19/24 Unknown Rx mg tablet (Percocet) tabs penicillin V potassium 250 mg 500 mg (2 x 250 mg) PO 4X/DAY #28 03/19/24 Unknown Rx tablet tabs Allergy/AdvReac Type Severity Reaction Status Date / Time morphine Allergy shaking, Verified 09/07/22 08:47 feels like body shuts down Surgical History H/O colonoscopy History of tonsillectomy Social History Smoking Status: Current every day smoker tobacco type: cigarettes ROS ROS ED Constitutional Constitutional ED: Denies chills, fever(s) or weight loss Eyes Eyes: Denies change in vision or diplopia ENT ENT ED: Reports other Details: See history of present illness ; Denies ear pain, rhinorrhea or sore throat Cardiovascular Cardiovascular: Denies chest pain, orthopnea, palpitations or racing heartbeat Respiratory/Chest Respiratory/Chest: Denies cough, dyspnea or orthopnea Gastrointestinal Gastrointestinal: Denies abdominal pain, diarrhea, nausea or vomiting Genitourinary Genitourinary ED: Denies dysuria, hematuria or urinary frequency Musculoskeletal Musculoskeletal: Denies arthralgias or myalgias Integumentary Denies abscess or rash Neurologic Neurologic: Denies headache(s) or weakness Psychiatric Psychiatric: Denies anxiety, depression, suicidal ideation or suicidal thoughts Endocrine Endocrinology: Denies polydipsia, polyphagia or polyuria Allergic/Immunologic Allergic/Immunologic ED: Denies mouth swelling, tongue swelling or urticaria EXAM Physical Exam Const Vital Signs: 03/19/24 10:51 Temperature 97.1 F L Temperature Source Temporal Pulse Rate 92 Respiratory Rate 16 Blood Pressure 122/71 H Blood Pressure Mean 88 Pulse Ox 98 Oxygen Delivery Method Room Air Positive well nourished and well developed General Appearance ED: well developed HEENT Reports normocephalic, head/scalp atraumatic and moist mucous membranes HEENT Narrative: Patient reports tenderness to palpation left upper central incisor. I do not appreciate any blood around the gumline. There is no significant swelling. I do not see dental fracture. There is no trismus. No facial swelling. Midface stable. No evidence of gingivitis Mouth ED: Yes oral and palatal mucosa normal Mouth: oral and palatal mucosa normal Eyes PERRL and EOMs intact bilaterally Neck no lymphadenopathy, supple and no JVD Resp normal respiratory effort and clear to auscultation bilaterally Cardio regular rate, regular rhythm and no murmurs GI normal to inspection, nondistended, normoactive bowel sounds and non-tender Palpation: soft Back/Spine no CVA tenderness and normal ROM Extremity normal to inspection General Extremety ED: Negative for edema General Extremity: Negative for edema Neuro oriented x3 and CN's II-XII intact bilaterally Sensorium / Orientation: alert Motor Exam: strength 5/5 throughout Psych mental status grossly normal Mood & Affect: Negative for depressed or tearful Skin no rashes or lesions noted and no wounds MDM MDM MDM Narrative Medical decision making narrative: Differential diagnosis includes but not limited to dental fracture dental caries periapical abscess gingivitis ANUG dental ligament injury The patient will be started on pain medication short course of penicillin. I did recommend keeping her dental appointment tomorrow. History & Record Review Discussion w/independent historian: Patient Discharge Plan Triage Chief Complaint: Dental ED Provider: Doug Felix Dx/Rx/DC Orders Clinical Impression: Pain, dental Instructions: ED Dental Pain Prescriptions: New ibuprofen 600 mg tablet 600 mg PO Q6H PRN PRN (Reason: pain) Qty: 20 0RF penicillin V potassium 250 mg tablet 500 mg PO 4X/DAY Qty: 28 0RF oxycodone-acetaminophen [Percocet] 5-325 mg tablet 1 tab PO Q6H PRN (Reason: pain) 3 Days Qty: 12 0RF No Action NK Primary Care Provider: Preston Anne Referrals: Preston Anne MD [Primary Care Provider] - Activity Restrictions/Additional Instructions: Please keep your appointment with your dentist tomorrow. Print Language: Ukrainian Disposition Disposition: Home, Self Care
== END 2024-03-19 11:42 | disposition home or self-care (01) ==
LOC: ED 11:36
PROVIDERS: Emergency Provider Emergency Medicine; PCP Family Medicine; Visit Provider Emergency Medicine
DX: K08.89 Other specified disorders of teeth and supporting structures (principal); F17.210 Nicotine dependence, cigarettes, uncomplicated
CPT/HCPCS: 99282

== ENCOUNTER 2024-07-17 01:15 | Emergency (ER) | payer BC, SELFPAY ==
[2024-07-17 01:16] VITALS: BP 100/63; PULSE 124; RESP 18; TEMP 37.9; O2SAT 98; BMI 35.5
[2024-07-17 01:20] VITALS: O2SAT 98
--- NOTE | 2024-07-17 01:29 | RAD_ITS ---
INDICATION: cough EXAMINATION/TECHNIQUE: X-RAY - XR Chest 1 View COMPARISON: 09/07/2022 chest radiograph. Findings: Single frontal view of the chest. LUNG PARENCHYMA: No acute focal airspace disease or mass lesion. PLEURA: No pleural effusion. No pneumothorax. HEART/GREAT VESSELS: Cardiomediastinal silhouette is unremarkable. BONES: Osseous structures are unremarkable for age. RAD/Chest 1 View (Portable) IMPRESSION: Chest with no acute disease. Electronically Signed: Chapo Mcneill MD at 3:02 EST ,
--- NOTE | 2024-07-17 01:30 | EDS_ITS ---
HPI History of Present Illness Chief Complaint: Shortness of Breath Informant: patient Narrative Narrative: 28-year-old female states for the past 2 weeks she has had a cough and shortness of breath. She states that on Tuesday she developed a fever with this and went to urgent care where she states that she was tested for influenza and this was negative. She states that she has worsened. She has a history of mild asthma for which she utilizes an albuterol MDI occasionally. She states that the cough has worsened and is occasionally productive of sputum. Patient just underwent a coughing fit with posttussive emesis. She notes a mild amount of diarrhea. She states that pneumonia has been going through her house. [facility] Medical History Depression Asthma Anxiety Chlamydia infection affecting Home Medications ?Medication ?Instructions ?Recorded ?Last Taken ?Type NK 03/19/24 Unknown History Allergy/AdvReac Type Severity Reaction Status Date / Time morphine Allergy shaking, Verified 07/17/24 01:20 feels like body shuts down Surgical History H/O colonoscopy History of tonsillectomy Social History Smoking Status: Current every day smoker tobacco type: cigarettes ROS ROS ED Constitutional Constitutional ED: Reports chills and fever(s); Denies weight loss Eyes Eyes: Denies change in vision or diplopia ENT ENT ED: Denies ear pain, rhinorrhea or sore throat Cardiovascular Cardiovascular: Denies chest pain, orthopnea, palpitations or racing heartbeat Respiratory/Chest Respiratory/Chest: Reports cough, dyspnea and sputum; Denies orthopnea Gastrointestinal Gastrointestinal: Reports diarrhea and vomiting; Denies abdominal pain or nausea Genitourinary Genitourinary ED: Denies dysuria, hematuria or urinary frequency Musculoskeletal Musculoskeletal: Reports myalgias; Denies arthralgias Integumentary Denies abscess or rash Neurologic Neurologic: Denies headache(s) or weakness Psychiatric Psychiatric: Reports anxiety; Denies depression, suicidal ideation or suicidal thoughts Endocrine Endocrinology: Denies polydipsia, polyphagia or polyuria Allergic/Immunologic Allergic/Immunologic ED: Denies mouth swelling, tongue swelling or urticaria EXAM Physical Exam Const Vital Signs: 07/17/24 01:16 07/17/24 01:20 07/17/24 01:38 Temperature 100.3 F H Temperature Source Oral Pulse Rate 124 H 138 H Respiratory Rate 18 20 H Respiratory Effort Normal Non-Labored Respiratory Depth Normal Respiratory Pattern Normal Normal Blood Pressure 100/63 Blood Pressure Mean 75 Pulse Ox 98 Oxygen Delivery Method Room Air Room Air 07/17/24 02:15 Temperature Temperature Source Pulse Rate 122 H Respiratory Rate 18 Respiratory Effort Respiratory Depth Respiratory Pattern Blood Pressure 106/68 Blood Pressure Mean 80 Pulse Ox 97 Oxygen Delivery Method Room Air Positive well nourished, well developed and obese General Appearance ED: well developed and NAD Nutritional Appearance: obese HEENT Reports normocephalic, head/scalp atraumatic and moist mucous membranes HEENT Narrative: Injected conjunctiva bilaterally no exudate Eyes PERRL and EOMs intact bilaterally Neck no lymphadenopathy, supple and no JVD Resp normal respiratory effort Auscultation: rhonchi left lower Cardio regular rate, regular rhythm and no murmurs Rate: tachycardic GI normal to inspection, nondistended, normoactive bowel sounds and non-tender Palpation: soft Back/Spine no CVA tenderness and normal ROM Extremity normal to inspection General Extremety ED: Negative for edema General Extremity: Negative for edema Neuro oriented x3 and CN's II-XII intact bilaterally Sensorium / Orientation: alert Motor Exam: strength 5/5 throughout Psych Mood & Affect: anxious and tearful; Negative for depressed Skin no rashes or lesions noted and no wounds MDM MDM MDM Narrative Medical decision making narrative: Differential diagnosis includes but not limited to viral syndrome bronchitis pneumonia pleural effusion pulmonary embolism bronchospasm asthma exacerbation My independent interpretation the chest x-ray is no acute process. Patient r eceived a DuoNeb. She also was given Motrin for fever. COVID influenza and RSV swabs were obtained. She is positive for influenza A. She is not experiencing any chest pain or hypoxia. I think the tachycardia is in part due to her anxiety and also to her fever. I am recommending aggressive fever control and oral hydration. She has been tolerating water here. She does not have vomiting per se but has posttussive emesis. Use of albuterol MDI as needed is encouraged. Follow-up with primary care if not improving return if worsening History & Record Review Discussion w/independent historian: Patient Discharge Plan Triage Chief Complaint: Shortness of Breath ED Provider: Doug Felix Dx/Rx/DC Orders Clinical Impression: Influenza A Instructions: ED Influenza (Adult) Prescriptions: No Action NK Primary Care Provider: Preston Anne Referrals: Preston Anne MD [Primary Care Provider] - As Needed Print Language: Ukrainian Disposition Disposition: Home, Self Care
[2024-07-17 01:38] VITALS: PULSE 138; RESP 20
[2024-07-17] MEDS: Ipratropium/Albuterol Sulfate 3 ML AMPUL.NEB INHALATION (01:38)
[2024-07-17] MEDS: Ibuprofen 600 MG Tablet PO (01:52)
--- NOTE | 2024-07-17 01:55 | ED.RN ---
This RN went to give the patient tylenol, the patient stated she had taken it not too long ago. RN notified MD and MD ordered ibuprofen instead. This RN stated try and calm down a little bit, take some deep breaths. You are okay. because the patient seems very anxious. She is visibly crying and has a heart rate of 140. Patient stated You need to work on your bedside manner because I am in pain and you said I am fine when I am not. This RN stated I never said you were fine, I am trying to calm you down because you seem anxious. The patient stated You said I was fine and I am not. I am in pain. This RN stated okay, that is fine. The patient requested a different nurse. Candelario Joy RN was notified.
[2024-07-17 02:15] VITALS: BP 106/68; PULSE 122; RESP 18; O2SAT 97
[2024-07-17 02:36] VITALS: BP 105/56; PULSE 120; RESP 19; TEMP 37.2; O2SAT 97
== END 2024-07-17 02:38 | disposition home or self-care (01) ==
PROVIDERS: Emergency Provider Emergency Medicine; PCP Family Medicine; Visit Provider Emergency Medicine
DX: J10.1 Influenza due to other identified influenza virus with other respiratory manifestations (principal); F17.210 Nicotine dependence, cigarettes, uncomplicated
CPT/HCPCS: 71045; 87631; 94640; 99282